=== PATIENT | male | born 1965 | race Caucasian/White ===

== ENCOUNTER → 2020-08-30 | Outpatient (CLI) | payer OTHER ==
--- NOTE | 2020-08-30 12:00 | ECHOF ---
Referral Reason:Z82.49 Family history of cardiovascular disease MEASUREMENTS -------- HEIGHT: 180.3 cm WEIGHT: 156.5 kg BP: RVIDd: 3.4 cm (< 3.3) IVSd: 2.0 cm (0.6 - 1.1) LVIDd: 4.2 cm (3.9 - 5.3) LVPWd: 2.1 cm (0.6 - 1.1) IVSs: 2.2 cm LVIDs: 3.0 cm LVPWs: 2.1 cm LAESV Index (A-L): 31.99 ml/m Ao Diam: 3.4 cm (2.0 - 3.7) AV Cusp: 2.5 cm (1.5 - 2.6) MV EXCURSION: 21.866 mm (> 18.000) MV EF SLOPE: 97 mm/s (70 - 150) EPSS: 0.7 cm MV E South: 0.83 m/s MV DecT: 201 ms MV A South: 0.56 m/s MV E/A Ratio: 1.47 RAP: 5.00 mmHg RVSP: 20.22 mmHg FINDINGS -------- This was a technically difficult study with suboptimal apical views. The left ventricular size is normal. There is severe concentric left ventricular hypertrophy. Ove rall left ventricular systolic function is normal with, an EF between 55 - 60 %. The diastolic fill ing pattern is normal for the age of the patient 11.91. The right ventricle is normal in size. LA is midly dilated 29-33ml/m2. The right atrium was not well visualized. 5.0mg of Lumason was utilized for enhancement of images Interatrial and interventricular septum intact. The aortic valve is trileaflet and appears structurally normal. There is no evidence of aortic regu rgitation. There is no evidence of aortic stenosis. Mild mitral regurgitation is present. Mild tricuspid regurgitation present. There is no evidence of pulmonary hypertension. The right v entricular systolic pressure, as measured by Doppler, is 20.22mmHg. There is no pulmonic regurgitation present. The aortic root size is normal. IVC Not well visulized. There is no pericardial effusion. CONCLUSIONS -------- 1. The left ventricular size is normal. 2. There is severe concentric left ventricular hypertrophy. 3. Overall left ventricular systolic function is normal with, an EF between 55 - 60 %. 4. The diastolic filling pattern is normal for the age of the patient 11.91 5. LA is midly dilated 29-33ml/m2. 6. Mild mitral regurgitation is present. 7. Mild tricuspid regurgitation present. 8.Aortic root apperas prominent CAN MAKER: Felipa Travis RDCS
== END | disposition home or self-care (01) ==
LOC: RADECHMAIN 08:11
PROVIDERS: ATTEND Internal Medicine
DX: Z13.6 Encounter for screening for cardiovascular disorders (principal); I08.1 Rheumatic disorders of both mitral and tricuspid valves; Z82.49 Family history of ischemic heart disease and other diseases of the circulatory system
CPT/HCPCS: 93306; Q9950

== ENCOUNTER 2020-10-17 08:40 | Emergency (ER) | payer OTHER ==
[2020-10-17 08:45] VITALS: RESP 18
[2020-10-17] MEDS ORDERED: HYDROmorphone 0.5 MG/0.5 ML SYRINGE IVP STA (08:55)
[2020-10-17] MEDS ORDERED: KETOROLAC 15 MG/ML 1 ML VIAL IVP STA (08:55)
[2020-10-17] MEDS ORDERED: SODIUM CHLORIDE 0.9% 500 ML 500 ML IV ONE (08:55)
[2020-10-17] MEDS ORDERED: ONDANSETRON 4 MG/2 ML VIAL IVP STA (08:55)
--- NOTE | 2020-10-17 08:55 | ED ---
Back Pain HPI - General Chief Complaint: Back Pain/Injury Stated Complaint: Kidney Stone Time Seen by Provider: 10/17/20 08:46 Source: patient Limitations: no limitations - History of Present Illness Initial Comments: 54yo male with suspected history of kidney stone (per patient) presenting today for hematuria/left flank pain. Patient states in the past believed he passed a kidney stone. He states his son has history of kidney stones. He states on he developed hematuria and left flank pain. Patient states he took his son's Flomax as well as his contralateral lack prescription. He states that his last dose of [place] was at midnight. Patient states that he has been known to urinate however it seemed to decreased slightly over the weekend. He states the hematuria resolved he denies fevers. Patient denies any chest pain shortness of breath. Patient denies a nausea vomiting diarrhea or abdominal pain. Patient states that the pain is episodic coming and going. Patient states the pain was slightly worsened this morning and thus I presents emergency department. Patient appears uncomfortable but not distressed on arrival. Very pleasant - Related Data Home Medications Medication Instructions Recorded Confirmed Cholecalciferol [Vitamin D3 (25 5,000 unit PO DAILY 10/17/20 10/17/20 Mcg = 1000 Iu)] Cider Vinegar [Apple Cider Vinegar] 300 mg PO DAILY 10/17/20 10/17/20 Fish Oil/Dha/Epa [Fish Oil 1,200 1 cap PO DAILY 10/17/20 10/17/20 mg Fish Oil] Ketorolac [Toradol] 10 mg PO DIRECTED 10/17/20 10/17/20 Tamsulosin HCl [Flomax] 0.4 mg PO DIRECTED 10/17/20 10/17/20 Previous Rx's Medication Instructions Recorded HYDROcodone/APAP 7.5-325MG [[place] 1 tab PO Q6HR PRN 3 Days #12 tab 10/17/20 7.5-325] Ketorolac [Toradol] 10 mg PO Q8HR PRN 3 Days #9 tab 10/17/20 Tamsulosin HCl [Flomax] 0.4 mg PO DAILY 7 Days #7 capsule 10/17/20 Allergies Allergy/AdvReac Type Severity Reaction Status Date / Time No Known Allergies Allergy Verified 10/17/20 09:33 Review of Systems ROS Statement: Those systems with pertinent positive or pertinent negative responses have been documented in the HPI. ROS Other: All systems not noted in ROS Statement are negative. Past Medical History Additional Past Medical History / Comment(s): arthritis in back History of Any Multi-Drug Resistant Organisms: None Reported Past Surgical History: Appendectomy, Orthopedic Surgery Additional Past Surgical History / Comment(s): colonoscopy, corrective toe surgery left great toe, Past Anesthesia/Blood Transfusion Reactions: No Reported Reaction Past Psychological History: No Psychological Hx Reported Smoking Status: Never smoker Past Alcohol Use History: Occasional Past Drug Use History: Marijuana - Past Family History Mother Family Medical History: No Reported History General Exam - General Exam Comments Initial Comments: General: The patient is awake and alert, in no distress Eye: +3 mm pupils are equal, round and reactive to light, extra-ocular movements are intact. No nystagmus. There is normal conjunctiva bilaterally. No signs of icterus. Ears, nose, mouth and throat: There are moist mucous membranes and no oral lesions. Neck: The neck is supple, there is no tenderness or JVD. Cardiovascular: There is a regular rate and rhythm. No murmur, rub or gallop is appreciated. Respiratory: Lungs are clear to auscultation, respirations are non-labored, breath sounds are equal. No wheezes, stridor, rales, or rhonchi. Gastrointestinal: Soft, non-distended, non-tender abdomen without masses or organomegaly noted. There is no rebound or guarding present. no CVA tenderness. Musculoskeletal: Normal ROM, no tenderness. Strength 5/5. Sensation intact. Radial pulses equal bilaterally 2+. Neurological: A&O x 3. CN II-XII intact grossly, There are no obvious motor or sensory deficits. Coordination appears grossly intact. Speech is normal. Skin: Skin is warm and dry and no rashes or lesions are noted. Psychiatric: Cooperative, appropriate mood & affect, normal judgment. Limitations: no limitations Course Vital Signs 10/17/20 10/17/20 08:42 10:15 Temperature 97.8 F 98.0 F Pulse Rate 73 68 Respiratory 18 18 Rate Blood Pressure 177/99 140/89 O2 Sat by Pulse 97 99 Oximetry Medical Decision Making - Medical Decision Making Kidney function stable. UA unremarkable. Afebrile. No hx of fevers.Large stone 1cm,hydronephrosis noted. patient pain controlled. wished to be discharged. ran cse by urology. Dr. Castro who is agreeable to discharge with outpatient f/u. Patietn discharged appearing well. - Lab Data Result diagrams: 10/17/20 09:05 10/17/20 09:05 Lab Results 10/17/20 10/17/20 10/17/20 Range/Units 09:05 09:05 09:05 WBC 7.3 (3.8-10.6) k/uL RBC 4.39 (4.30-5.90) m/uL Hgb 14.0 (13.0-17.5) gm/dL Hct 40.8 (39.0-53.0) % MCV 93.0 (80.0-100.0) fL MCH 31.8 (25.0-35.0) pg MCHC 34.2 (31.0-37.0) g/dL RDW 12.1 (11.5-15.5) % Plt Count 201 (150-450) k/uL MPV 7.0 Neutrophils % 61 % Lymphocytes % 25 % Monocytes % 8 % Eosinophils % 3 % Basophils % 2 % Neutrophils # 4.5 (1.3-7.7) k/uL Lymphocytes # 1.8 (1.0-4.8) k/uL Monocytes # 0.6 (0-1.0) k/uL Eosinophils # 0.2 (0-0.7) k/uL Basophils # 0.1 (0-0.2) k/uL Sodium 140 (137-145) mmol/L Potassium 4.3 (3.5-5.1) mmol/L Chloride 107 (98-107) mmol/L Carbon Dioxide 28 (22-30) mmol/L Anion Gap 5 mmol/L BUN 17 (9-20) mg/dL Creatinine 0.86 (0.66-1.25) mg/dL Est GFR (CKD-EPI)AfAm >90 (>60 ml/min/1.73 sqM) Est GFR (CKD-EPI)NonAf >90 (>60 ml/min/1.73 sqM) Glucose 102 H (74-99) mg/dL Calcium 9.1 (8.4-10.2) mg/dL Total Bilirubin 1.1 (0.2-1.3) mg/dL AST 33 (17-59) U/L ALT 31 (4-49) U/L Alkaline Phosphatase 79 (38-126) U/L Total Protein 7.2 (6.3-8.2) g/dL Albumin 4.0 (3.5-5.0) g/dL Urine Color Yellow Urine Appearance Clear (Clear) Urine pH 7.0 (5.0-8.0) Ur Specific [place] 1.015 (1.001-1.035) Urine Protein Negative (Negative) Urine Glucose (UA) Negative (Negative) Urine Ketones Negative (Negative) Urine Blood Negative (Negative) Urine Nitrite Negative (Negative) Urine Bilirubin Negative (Negative) Urine Urobilinogen <2.0 (<2.0) mg/dL Ur Leukocyte Esterase Negative (Negative) Disposition Clinical Impression: Left ureteral calculus, Left flank pain Disposition: HOME SELF-CARE Condition: Good Instructions (If sedation given, give patient instructions): Kidney Stones (ED) Additional Instructions: Please use medication as discussed. Please follow-up with family doctor in the next 2 days. Please return to emergency room if the symptoms increase or worsen or for any other concerns. Prescriptions: Tamsulosin HCl [Flomax] 0.4 mg PO DAILY 7 Days #7 capsule HYDROcodone/APAP 7.5-325MG [[place] 7.5-325] 1 tab PO Q6HR PRN 3 Days #12 tab PRN Reason: Pain Ketorolac [Toradol] 10 mg PO Q8HR PRN 3 Days #9 tab PRN Reason: Pain Is patient prescribed a controlled substance at d/c from ED?: Yes When asked, does pt state using other controlled substances?: No If prescribed controlled substance>3 days was MAPS reviewed?: Prescribed <3 Days If opioid is for acute pain is fill amount 7 days or less?: Yes If Rx opioid, was Start Talking consent form obtained?: Yes Referrals: Simón Valdes MD [Primary Care Provider] - 1-2 days Uziel Castro MD [STAFF PHYSICIAN] - 1-2 days Time of Disposition: 09:57
[2020-10-17 09:19] LABS: Appearance,Urine Clear (Clear); Bilirubin,Urine Negative (Negative); Blood,Urine Negative (Negative); Color,Urine Yellow; Glucose,Urine (UA) Negative (Negative); Ketones,Urine Negative (Negative); Leukocyte Esterase,Urine Negative (Negative); Nitrite,Urine Negative (Negative); Protein,Urine Negative (Negative); Specific Gravity,Urine 1.015 (1.001-1.035); Urobilinogen,Urine <2.0 mg/dL (<2.0)
[2020-10-17 09:20] LABS: Basophils # (A) 0.1 k/uL (0-0.2); Basophils % (A) 2 %; Eosinophils # (A) 0.2 k/uL (0-0.7); Eosinophils % (A) 3 %; HCT 40.8 % (39.0-53.0); Lymphocytes # (A) 1.8 k/uL (1.0-4.8); Lymphocytes % (A) 25 %; MCH 31.8 pg (25.0-35.0); MCHC 34.2 g/dL (31.0-37.0); Monocytes # (A) 0.6 k/uL (0-1.0); Monocytes % (A) 8 %; Neutrophils # (A) 4.5 k/uL (1.3-7.7); Neutrophils % (A) 61 %; Platelet Count 201 k/uL (150-450); RBC 4.39 m/uL (4.30-5.90); RDW 12.1 % (11.5-15.5); WBC 7.3 k/uL (3.8-10.6)
--- NOTE | 2020-10-17 09:35 | CT ---
EXAMINATION TYPE: CT abdomen pelvis wo con DATE OF EXAM: 10/17/2020 COMPARISON: None HISTORY: Lt flank pain CT DLP: 2876 mGycm Examination of the solid and hollow viscera is limited given the lack of contrast. FINDINGS: LUNG BASES: No evidence for nodule. No evidence for infiltrate. LIVER/GB: The gallbladder is unremarkable. No space-occupying hepatic lesion. PANCREAS: No pancreatic mass identified. No inflammatory process seen. SPLEEN: No evidence for splenomegaly. No intrasplenic lesions seen. ADRENALS: No adrenal nodules identified. No evidence for thickening. KIDNEYS: No evidence for renal mass. 1 cm calculus left UVJ resulting in mild to moderate left-sided hydronephrosis. No additional calculi seen. BOWEL: Appendix has a normal appearance. No evidence of bowel obstruction. No inflammatory process. Lymph nodes: No evidence for adenopathy greater than 1 cm. Abdominal aorta: Atheromatous changes seen. No evidence for aneurysm. Genital organs: No significant abnormality. Other: No significant abnormality. IMPRESSION: 1 cm calculus left UVJ resulting in mild to moderate left-sided hydronephrosis. No additional calculi seen.
[2020-10-17 09:38] LABS: ALT 31 U/L (4-49); AST 33 U/L (17-59); African American GFR (CKD) >90 (>60 ml/min/1.73 sqM); Alkaline Phosphatase 79 U/L (38-126); Anion Gap 5 mmol/L; Blood Urea Nitrogen 17 mg/dL (9-20); Calcium 9.1 mg/dL (8.4-10.2); Carbon Dioxide 28 mmol/L (22-30); Chloride 107 mmol/L (98-107); Glucose 102 mg/dL (74-99); Non-African American GFR(CKD) >90 (>60 ml/min/1.73 sqM); Potassium 4.3 mmol/L (3.5-5.1); Sodium 140 mmol/L (137-145); Total Bilirubin 1.1 mg/dL (0.2-1.3); Total Protein 7.2 g/dL (6.3-8.2)
[2020-10-17 10:19] VITALS: BP 140/89; PULSE 68; TEMP 98
== END 2020-10-17 10:22 | disposition home or self-care (01) ==
LOC: EC 08:40
DX: N13.2 Hydronephrosis with renal and ureteral calculous obstruction (principal); Z79.1 Long term (current) use of non-steroidal anti-inflammatories (NSAID); Z79.899 Other long term (current) drug therapy; Z90.89 Acquired absence of other organs
CPT/HCPCS: 36415; 80053; 85025; 81003; 74176; 99284; 96374; 96375 ×2; J2405; J1885; J1170

== ENCOUNTER 2020-10-31 10:55 | Inpatient (IN) | payer OTHER ==
--- NOTE | 2020-10-24 12:11 | P.HPIHPCON ---
History of Present Illness H&P Date: 10/24/20 Chief Complaint: left flank pain Mr Olvera is a 54-year-old male with a history of a 1 cm left-sided proximal stone. He is symptomatic from his stone. The option of ureteroscopy and ESWL were discussed with him. He agreed to proceed with left-sided ureteroscopy. Discussed with him the risks which includes but not limited to bleeding, infection, injury to the ureter. He understood all the risk and agreed to proceed with left-sided ureteroscopy, with holmium laser lithotripsy, stone basketing and stent placement Consent for Procedure: I have explained the operation/procedure to the patient, including the risks, benefits, side effects, alternative therapies (including not receiving the proposed treatment or service), the likelihood of the patient achieving his/her goals, and potential recuperation problems for the procedure/sedation/analgesia, as well as any blood products, if indicated. I also explained to the patient the risks, benefits and side effects of the alternatives, as well as the risks related to not receiving the proposed procedure, care, treatment, or services. - Constitutional Constitutional: Denies chills, Denies fever - Cardiovascular Cardiovascular: Denies chest pain, Denies shortness of breath - Respiratory Respiratory: Denies cough, Denies 7 - Gastrointestinal Gastrointestinal: Denies abdominal pain, Denies diarrhea, Denies nausea, Denies vomiting - Genitourinary (Female) Genitourinary: Reports flank pain, Reports kidney stones Past Medical History Additional Past Medical History / Comment(s): arthritis in back History of Any Multi-Drug Resistant Organisms: None Reported Past Surgical History: Appendectomy, Orthopedic Surgery Additional Past Surgical History / Comment(s): colonoscopy, corrective toe surgery left great toe, Past Anesthesia/Blood Transfusion Reactions: No Reported Reaction Past Psychological History: No Psychological Hx Reported Smoking Status: Never smoker Past Alcohol Use History: Occasional Past Drug Use History: Marijuana - Past Family History Mother Family Medical History: No Reported History Medications and Allergies Home Medications Medication Instructions Recorded Confirmed Type Cholecalciferol [Vitamin D3 (25 5,000 unit PO DAILY 10/17/20 10/17/20 History Mcg = 1000 Iu)] Cider Vinegar [Apple Cider Vinegar] 300 mg PO DAILY 10/17/20 10/17/20 History Fish Oil/Dha/Epa [Fish Oil 1,200 1 cap PO DAILY 10/17/20 10/17/20 History mg Fish Oil] HYDROcodone/APAP 7.5-325MG [[place] 1 tab PO Q6HR PRN 3 Days #12 tab 10/17/20 Rx 7.5-325] Ketorolac [Toradol] 10 mg PO DIRECTED 10/17/20 10/17/20 History Ketorolac [Toradol] 10 mg PO Q8HR PRN 3 Days #9 tab 10/17/20 Rx Tamsulosin HCl [Flomax] 0.4 mg PO DIRECTED 10/17/20 10/17/20 History Tamsulosin HCl [Flomax] 0.4 mg PO DAILY 7 Days #7 capsule 10/17/20 Rx Allergies Allergy/AdvReac Type Severity Reaction Status Date / Time No Known Allergies Allergy Verified 10/17/20 09:33 Surgical - Exam - General no distress, moderate pain - Eyes PERRL, normal ocular movement - ENT normal nares, normal mucosa - Respiratory normal expansion, normal respiratory effort - Abdomen Abdomen: soft, non tender - Psychiatric oriented to time, oriented to person, oriented to place Assessment and Plan Assessment: 54 yo male with hx of 1 cm left sided proximal stone - OR for left-sided ureteroscopy, holmium laser lithotripsy, stone basketing, and stent placement
[2020-10-24 15:03] VITALS: BMI 47.4
[~2020-10-31 10:55] MED LIST: DEXAMETHASONE SOD PHOSPHATE 4 MG/ML 1 ML VIAL IV ONE; HYDROmorphone 0.5 MG/0.5 ML SYRINGE IVP PRN; ONDANSETRON 4 MG/2 ML VIAL IVP ONE; ceFAZolin 3 GM in SODIUM CHLORIDE 0.9% 100 ML IVPB PRN
--- NOTE | 2020-10-31 11:23 | XR ---
EXAMINATION TYPE: XR KUB DATE OF EXAM: 10/31/2020 COMPARISON: NONE HISTORY: Precystoscopy TECHNIQUE: One view abdominal series FINDINGS: The osseous structures are intact. The bowel gas pattern is nonspecific. Hypertrophic change of the spine. Hypertrophic change of the acetabulum bilaterally correlate for femoral acetabular impingement . There are 2 tiny 2 mm calcifications in the lower right hemipelvis which are indeterminate. Upper a bdominal structures are not included. There does appear to be a calcification overlying the left 12th rib likely within the left kidney measuring approximately 1 cm in long axis. IMPRESSION: 1. Nonspecific abdomen. Suspect a left renal calculus measuring approximately 1 cm. 2. Indeterminate tiny right hemipelvic calcifications.
[2020-10-31] MEDS ORDERED: ACETAMINOPHEN TAB 500 MG TAB PO STA (12:17)
[2020-10-31] MEDS ORDERED: ACETAMINOPHEN TAB 500 MG TAB ONE (12:18)
[2020-10-31 12:32] LABS: Appearance,Urine Clear (Clear); Bilirubin,Urine Negative (Negative); Blood,Urine Small (Negative); Color,Urine Light Yellow; Glucose,Urine (UA) Negative (Negative); Hyaline Casts,Urine 1 /lpf (0-2); Ketones,Urine Negative (Negative); Leukocyte Esterase,Urine Large (Negative); Nitrite,Urine Positive (Negative); PH, Urine 7.5 (5.0-8.0); Protein,Urine Negative (Negative); RBC,Urine <1 /hpf (0-5); Urobilinogen,Urine <2.0 mg/dL (<2.0); WBC,Urine 3 /hpf (0-5)
[2020-10-31] MEDS: LACTATED RINGERS 1,000 ML IV SCH (12:57)
[2020-10-31 13:07] LABS: Basophils # (A) 0.1 k/uL (0-0.2); Basophils % (A) 1 %; Eosinophils # (A) 0.1 k/uL (0-0.7); Eosinophils % (A) 1 %; HCT 37.9 % (39.0-53.0); Lymphocytes # (A) 1.1 k/uL (1.0-4.8); Lymphocytes % (A) 9 %; MCH 31.4 pg (25.0-35.0); MCHC 34.3 g/dL (31.0-37.0); MCV 91.6 fL (80.0-100.0); Mean Platelet Volume 7.3; Monocytes # (A) 0.5 k/uL (0-1.0); Monocytes % (A) 4 %; Neutrophils # (A) 10.4 k/uL (1.3-7.7); Neutrophils % (A) 85 %; Platelet Count 183 k/uL (150-450); RBC 4.14 m/uL (4.30-5.90); RDW 12.1 % (11.5-15.5); WBC 12.3 k/uL (3.8-10.6)
[2020-10-31 13:13] LABS: ALT 28 U/L (4-49); AST 30 U/L (17-59); African American GFR (CKD) >90 (>60 ml/min/1.73 sqM); Albumin 3.9 g/dL (3.5-5.0); Alkaline Phosphatase 73 U/L (38-126); Anion Gap 4 mmol/L; Blood Urea Nitrogen 16 mg/dL (9-20); Calcium 8.9 mg/dL (8.4-10.2); Carbon Dioxide 27 mmol/L (22-30); Chloride 105 mmol/L (98-107); Glucose 92 mg/dL (74-99); Non-African American GFR(CKD) >90 (>60 ml/min/1.73 sqM); Sodium 136 mmol/L (137-145); Total Protein 6.9 g/dL (6.3-8.2)
[2020-10-31] MEDS ORDERED: SUCCINYLCHOLINE CHLORIDE 100 MG/5 ML SYR IV ONE (14:22)
[2020-10-31] MEDS ORDERED: MIDAZOLAM 2 MG/2 ML VIAL ONE (14:22)
[2020-10-31] MEDS ORDERED: fentaNYL (PF) 50 MCG/ML 2 ML AMP ONE (14:22)
[2020-10-31] MEDS ORDERED: LIDOCAINE 1% INJ 10MG/ML (20 ML MDV) ONE (14:22)
[2020-10-31] MEDS ORDERED: PROPOFOL 10 MG/ML 20 ML VIAL IV ONE (14:22)
[2020-10-31] MEDS ORDERED: GENTAMICIN 40 MG/ML 2 ML VIAL IVPB ONE (14:43)
--- NOTE | 2020-10-31 14:56 | P.OP ---
Date of Procedure: 10/31/20 Preoperative Diagnosis: left ureteral calculi Postoperative Diagnosis: same Procedure(s) Performed: cystoscopy and left ureteral stent placement Implants: 6Fr X 26 cm stent Anesthesia: TERESSA Surgeon: Uziel Castro Estimated Blood Loss (ml): 1 Pathology: none sent Condition: stable Disposition: PACU Indications for Procedure: Mr Olvera is a 54-year-old male with a history of a 1 cm left-sided proximal stone. He is symptomatic from his stone. The option of ureteroscopy and ESWL were discussed with him. He agreed to proceed with left-sided ureteroscopy. Of note patient was febrile in the preoperative area, urine was obtained which was concerning for UTI. Discussed with him given his UTI and fever I recommend we proceed with stent placement. And then we'll perform ureteroscopy at a later date. Discussed with him risk of bleeding, infection, ureteral injury. He understood all the risk and agreed to proceed with ureteral stent placement. Discussed with him given his fever we will admit him to the hospital postoperatively Description of Procedure: Patient was brought to the operating room, general anesthesia was induced. A cystoscopy fitted with a 22 sheath was inserted per urethra, cystoscopy was performed which showed no abnormality within the bladder. Attention was carried to the left ureteral orifice, sensor wire was advanced through ureteral orifice and into the kidney. Next a 6-Irish by 26 cm stent was passed over the wire. The proximal curl was visualized on fluoroscopy and distal curl was visualized on cystoscope. Cloudy urine was drained from the collecting system. The bladder was emptied and the case. The patient tolerated procedure well and significant PACU in stable condition
--- NOTE | 2020-10-31 15:15 | FL ---
EXAMINATION TYPE: FL guidance operating room DATE OF EXAM: 10/31/2020 HISTORY: Fluoroscopy time 14 seconds of fluoroscopy provided. IMPRESSION: 1. Fluoroscopy time.
[2020-10-31] MEDS: KETOROLAC 15 MG/ML 1 ML VIAL IVP SCH (17:42)
[2020-10-31 17:57] LABS: Basophils % (A) 0 %; Eosinophils # (A) 0.1 k/uL (0-0.7); Eosinophils % (A) 0 %; HGB 13.9 gm/dL (13.0-17.5); Lymphocytes # (A) 0.8 k/uL (1.0-4.8); Lymphocytes % (A) 5 %; MCH 30.3 pg (25.0-35.0); MCHC 32.3 g/dL (31.0-37.0); MCV 93.9 fL (80.0-100.0); Mean Platelet Volume 7.4; Monocytes # (A) 0.4 k/uL (0-1.0); Monocytes % (A) 2 %; Neutrophils # (A) 15.8 k/uL (1.3-7.7); Neutrophils % (A) 92 %; Platelet Count 212 k/uL (150-450); RBC 4.58 m/uL (4.30-5.90); RDW 12.6 % (11.5-15.5); WBC 17.1 k/uL (3.8-10.6)
[2020-10-31 18:08] LABS: African American GFR (CKD) >90 (>60 ml/min/1.73 sqM); Anion Gap 8 mmol/L; Blood Urea Nitrogen 14 mg/dL (9-20); Calcium 9.3 mg/dL (8.4-10.2); Carbon Dioxide 28 mmol/L (22-30); Chloride 102 mmol/L (98-107); Glucose 109 mg/dL (74-99); Non-African American GFR(CKD) >90 (>60 ml/min/1.73 sqM); Potassium 4.3 mmol/L (3.5-5.1); Sodium 138 mmol/L (137-145)
[2020-10-31] MEDS: SODIUM CHLORIDE 0.9% 1,000 ML IV SCH ×2 (19:13→23:59)
[2020-10-31] MEDS: HYDROcodone/APAP 5-325MG 1 EACH TAB PO PRN (19:31)
[2020-11-01] MEDS: HYDROcodone/APAP 5-325MG 1 EACH TAB PO PRN ×2 (00:51→21:20)
[2020-11-01] MEDS: KETOROLAC 15 MG/ML 1 ML VIAL IVP SCH ×6 (01:47→23:35)
[2020-11-01] MEDS: LACTATED RINGERS 1,000 ML IV SCH (04:01)
[2020-11-01] MEDS: SODIUM CHLORIDE 0.9% 1,000 ML IV SCH ×4 (05:42→23:33)
[2020-11-01] MEDS: ACETAMINOPHEN TAB 500 MG TAB PO PRN ×2 (07:26→14:54)
[2020-11-01] MEDS: TAMSULOSIN 0.4 MG CAP.ER.24H PO SCH (09:26)
--- NOTE | 2020-11-01 17:19 | P.PN ---
Progress Note - Text Progress Note Date: 11/01/20 The patient continues to have some discomfort in the left flank and left abdomen. He has had intermittent fevers as high as 101.5. He is tolerating a diet. White blood count is 17,100. BUN/creatinine are 14/0.8. Urine culture is pending. Blood cultures are negative. I explained to the patient that treatment of his left ureteral calculus will need to be deferred until his urinary tract infection has been eliminated. Hopefully his cultures will be back within the next 24-48 hours. He will be continued on ceftriaxone.
[2020-11-02] MEDS: ACETAMINOPHEN TAB 500 MG TAB PO PRN (03:46)
[2020-11-02] MEDS: LACTATED RINGERS 1,000 ML IV SCH (05:35)
[2020-11-02 06:07] LABS: HCT 35.8 % (39.0-53.0); HGB 12.2 gm/dL (13.0-17.5); MCH 31.8 pg (25.0-35.0); MCV 93.5 fL (80.0-100.0); Mean Platelet Volume 7.7; Platelet Count 144 k/uL (150-450); RBC 3.83 m/uL (4.30-5.90); RDW 11.9 % (11.5-15.5); WBC 16.5 k/uL (3.8-10.6)
[2020-11-02] MEDS: KETOROLAC 15 MG/ML 1 ML VIAL IVP SCH ×2 (06:28→11:56)
[2020-11-02 08:06] VITALS: BP 134/76; PULSE 74; TEMP 98.4
[2020-11-02] MEDS: TAMSULOSIN 0.4 MG CAP.ER.24H PO SCH (08:08)
[2020-11-02 09:11] VITALS: RESP 18
--- NOTE | 2020-11-02 20:29 | P.DS ---
Providers Date of admission: 11/02/20 09:55 Expected date of discharge: 11/02/20 Attending physician: Uziel Castro MD Primary care physician: [facility] Course: The patient is a 54-year-old male who was discovered to have a 1 cm proximal left ureteral calculus with secondary hydronephrosis in 10/2020. Treatment of the ureteral calculus via left ureteroscopy with lithotripsy was planned on the date of admission. At the time of admission the patient was noted to be febrile and in retrospect the patient says that he had been experiencing a fever for at least 2 or 3 days prior to that. His urinalysis at that time suggested a urinary tract infection and Dr. Castro elected to cancel the planned ureteroscopy with lithotripsy and instead performed cystoscopy with placement of a left double-J catheter. The patient was started on Levaquin. He remained febrile through the night and the following day but by 11/02 had been afebrile for over 24 hours. Blood cultures showed no growth. Urine culture was growing a gram-negative morelia but the final identification and sensitivities were pending. The patient was tolerating a regular diet and it was elected to give him a dose of ceftriaxone on the date of discharge with the intent that he would be contacted following day once the urine culture and sensitivity and was returned and an antibiotic would be prescribed for him at that time. Left ureteroscopy with lithotripsy has been tentatively scheduled for 11/14. Patient Condition at Discharge: Good Plan - Discharge Summary Discharge Rx Participant: No New Discharge Prescriptions: No Action Fish Oil/Dha/Epa [Fish Oil 1,200 mg Fish Oil] 1 cap PO DAILY Cider Vinegar [Apple Cider Vinegar] 300 mg PO DAILY Tamsulosin HCl [Flomax] 0.4 mg PO DAILY 7 Days #7 capsule Ketorolac [Toradol] 10 mg PO Q8HR PRN 3 Days #9 tab PRN Reason: Pain HYDROcodone/APAP 7.5-325MG [[place] 7.5-325] 1 tab PO Q6HR PRN 3 Days #12 tab PRN Reason: Pain Cholecalciferol [Vitamin D3 (25 Mcg = 1000 Iu)] 10,000 unit PO DAILY Discharge Medication List Cider Vinegar [Apple Cider Vinegar] 300 mg PO DAILY 10/17/20 [History] Fish Oil/Dha/Epa [Fish Oil 1,200 mg Fish Oil] 1 cap PO DAILY 10/17/20 [History] HYDROcodone/APAP 7.5-325MG [[place] 7.5-325] 1 tab PO Q6HR PRN 3 Days #12 tab 10/17/20 [Rx] Ketorolac [Toradol] 10 mg PO Q8HR PRN 3 Days #9 tab 10/17/20 [Rx] Tamsulosin HCl [Flomax] 0.4 mg PO DAILY 7 Days #7 capsule 10/17/20 [Rx] Cholecalciferol [Vitamin D3 (25 Mcg = 1000 Iu)] 10,000 unit PO DAILY 10/24/20 [History] Follow up Appointment(s)/Referral(s): Uziel Castro MD [STAFF PHYSICIAN] - 1 Week Christiano Morin MD [STAFF PHYSICIAN] - As Needed (Office to call patient Osbaldo sday with antibiotic orders once culture comes back ) Patient Instructions/Handouts: Lithotripsy (DC) Discharge Disposition: HOME SELF-CARE
== END 2020-11-02 13:28 | disposition home or self-care (01) | DRG 660 ==
LOC: OR 10:55 → 4SSUR 15:08 → OR 11-01 08:47 → 4SSUR 11-01 08:47 → OBSVTOIN 11-02 09:55
PROVIDERS: ADMIT Urology; ATTEND Urology
PROC: 0T778DZ Dilation of Left Ureter with Intraluminal Device, Via Natural or Artificial Opening Endoscopic (ICD-10-PCS; principal; 2020-10-31 14:00)
DX: N13.6 Pyonephrosis (principal); Z68.42 Body mass index [BMI] 45.0-49.9, adult; E66.01 Morbid (severe) obesity due to excess calories; G47.33 Obstructive sleep apnea (adult) (pediatric); Z79.899 Other long term (current) drug therapy; Z90.49 Acquired absence of other specified parts of digestive tract; Z98.890 Other specified postprocedural states
CPT/HCPCS: 74018; 80048; 80053; 81001; 85025; 85027; 87040; 87077; 87086; 87186

== ENCOUNTER 2020-11-14 06:05 | Day surgery (SDC) | payer OTHER ==
--- NOTE | 2020-11-13 13:21 | P.HPIHPCON ---
History of Present Illness H&P Date: 11/13/20 Chief Complaint: left sided kidney stone Mr Olvera is a 54-year-old male with a history of a 1 cm left-sided proximal stone. He is S/P stent placement on 10/31 for septic stone. The option of ureteroscopy and ESWL were discussed with him. He agreed to proceed with left-s ided ureteroscopy. Discussed with him the risks which includes but not limited to bleeding, infection, injury to the ureter. He understood all the risk and agreed to proceed with left-sided ureteroscopy, with holmium laser lithotripsy, stone basketing and stent placement Consent for Procedure: I have explained the operation/procedure to the patient, including the risks, benefits, side effects, alternative therapies (including not receiving the proposed treatment or service), the likelihood of the patient achieving his/her goals, and potential recuperation problems for the procedure/sedation/analgesia, as well as any blood products, if indicated. I also explained to the patient the risks, benefits and side effects of the alternatives, as well as the risks related to not receiving the proposed procedure, care, treatment, or services. Past Medical History Past Medical History: Osteoarthritis (OA), Sleep Apnea/CPAP/BIPAP Additional Past Medical History / Comment(s): UTI, TREATED WITH LEVAQUIN. Kidney stones, hx of colon polyps History of Any Multi-Drug Resistant Organisms: None Reported Past Surgical History: Appendectomy, Orthopedic Surgery Additional Past Surgical History / Comment(s): 10/31/20 LEFT URETERAL STENT PLACED, KIDNEY STONE. Colonoscopy, corrective toe surgery right great toe, Past Anesthesia/Blood Transfusion Reactions: No Reported Reaction Past Psychological History: No Psychological Hx Reported Smoking Status: Former smoker Past Alcohol Use History: Occasional Additional Past Alcohol Use History / Comment(s): quit smoking 2008, smoked for 20 yrs- < 1 PPD Past Drug Use History: Marijuana Additional Drug Use History / Comment(s): occasional use, instructed to hold 24hrs prior to procedure - Past Family History Mother Family Medical History: No Reported History Medications and Allergies Home Medications Medication Instructions Recorded Confirmed Type Cider Vinegar [Apple Cider Vinegar] 300 mg PO DAILY 10/17/20 11/10/20 History Fish Oil/Dha/Epa [Fish Oil 1,200 1 cap PO DAILY 10/17/20 11/10/20 History mg Fish Oil] HYDROcodone/APAP 7.5-325MG [[place] 1 tab PO Q6HR PRN 3 Days #12 tab 10/17/20 11/10/20 Rx 7.5-325] Tamsulosin HCl [Flomax] 0.4 mg PO DAILY 7 Days #7 capsule 10/17/20 11/10/20 Rx Cholecalciferol [Vitamin D3 (25 10,000 unit PO DAILY 10/24/20 11/10/20 History Mcg = 1000 Iu)] Levofloxacin [Levaquin] 500 mg PO DAILY 11/10/20 11/10/20 History Allergies Allergy/AdvReac Type Severity Reaction Status Date / Time No Known Allergies Allergy Verified 10/31/20 12:28 Surgical - Exam - General well developed, well nourished, no distress - Respiratory normal expansion, normal respiratory effort - Abdomen Abdomen: soft, non tender - Psychiatric oriented to time, oriented to person, oriented to place Assessment and Plan Assessment: 54 yo male with hx of left sided stone -OR for left sided ureteroscopy, with holmium laser lithotripsy, stone basketting and stent exchange
[~2020-11-14 06:05] MED LIST changes: +GENTAMICIN 120 MG in SODIUM CHLORIDE 0.9% 100 ML IVPB PRN; +LACTATED RINGERS 1,000 ML IV SCH; +LIDOCAINE 1% (10MG/ML) FOR IV START INTRADERMA PRN; +SCOPOLAMINE 1.5MG/72HR PATCH TRANSDERM ONE; -ceFAZolin 3 GM in SODIUM CHLORIDE 0.9% 100 ML IVPB PRN
[2020-11-14] MEDS ORDERED: ePHEDrine SULFATE/0.9% NACL/PF 50 MG/5 ML SYRINGE IV ONE (07:33)
[2020-11-14] MEDS ORDERED: LIDOCAINE 1% INJ 10MG/ML (20 ML MDV) ONE (07:33)
[2020-11-14] MEDS ORDERED: MIDAZOLAM 2 MG/2 ML VIAL ONE (07:33)
[2020-11-14] MEDS ORDERED: PROPOFOL 10 MG/ML 20 ML VIAL IV ONE (07:33)
[2020-11-14] MEDS ORDERED: SUCCINYLCHOLINE CHLORIDE VIAL 200 MG/10 ML VIAL IV ONE (07:33)
[2020-11-14] MEDS ORDERED: fentaNYL (PF) 50 MCG/ML 2 ML AMP ONE (07:33)
[2020-11-14] MEDS ORDERED: IOPAMIDOL-370 50ML BTL MISCELLANE ONE (07:38)
--- NOTE | 2020-11-14 08:47 | P.OP ---
Date of Procedure: 11/14/20 Preoperative Diagnosis: Left Sided ureteral stone Postoperative Diagnosis: same Procedure(s) Performed: Cystoscopy, left retrograde pyelogram, ureteroscopy, holmium laser lithotripsy, stone basketing and stent exchange Implants: 6Fr X 26 cm stent left on string Anesthesia: TERESSA Surgeon: Uziel Castro Estimated Blood Loss (ml): 1 Pathology: other (Left ureteral stone) Condition: stable Disposition: PACU Indications for Procedure: Mr Olvera is a 54-year-old male with a history of a 1 cm left-sided proximal stone. He is S/P stent placement on 10/31 for septic stone. The option of ureteroscopy and ESWL were discussed with him. He agreed to proceed with left- sided ureteroscopy. Discussed with him the risks which includes but not limited to bleeding, infection, injury to the ureter. He understood all the risk and agreed to proceed with left-sided ureteroscopy, with holmium laser lithotripsy, stone basketing and stent placement Operative Findings: previous ureteral Stone has migrated to the left renal pelvis Description of Procedure: Patient was brought to the operating room, general anesthesia was induced. He was prepped and draped in sterile fashion and placed in a dorsal lithotomy position. Cystoscopy fitted with a 21-Vincentian sheath was inserted per urethra, cystoscopy was performed which showed no abnormality within the bladder. Attention was then carried to the left ureteral orifice, the stent was grasped using the stent grasper and pulled to the meatus. Next a sensor wire was advanced through the stent and into the renal pelvis. Location of wire was confirmed on fluoroscopy. Next an open-ended catheter was advanced over the wire and into today distal ureter. At this time the wire was removed with the catheter in place. Next retrograde pyelogram was performed which showed a filling defect in the renal pelvis, and no filling defect along the ureter. At this time the sensor wire was readvanced through the catheter catheter was removed with the wire in place. Next a 1214 Vincentian access sheath was passed over the wire under fluoroscopy into the proximal ureter. Next the flexible ureteroscope was inserted through the access sheath, renoscopy was performed which showed a large stone within the renal pelvis. Using the holmium laser the stone was dusted into small fragments, sizable fragments were removed using the stone basket and sent for analysis. Repeat renoscopy showed no injury to the kidney or any sizable fragments. Pullback ureteroscopy was performed showed no injury to the ureter or any ureteral stone. Next a 6-Vincentian by 26 cm stent was passed over the wire, the proximal curl was visualized on the fluoroscopy and the distal curl was visualized using the cystoscope. The stent was left on a string and taped to the patient penis. The patient thought the procedure well was taken to PACU in stable condition
--- NOTE | 2020-11-14 08:58 | XR ---
EXAMINATION TYPE: XR KUB DATE OF EXAM: 11/14/2020 6:25 AM CLINICAL HISTORY: Left-sided renal calculi. TECHNIQUE: Two supine KUB images of the abdomen are obtained. COMPARISON: CT head October 17, 2020. Most recent abdominal x-ray October 31, 2020. FINDINGS: New double-J left ureteral stent noted. Stable 7 mm proximal left ureter calculus L3 level along stent. Overall nonobstructive bowel gas pattern. Degenerative spurring in the spine redemonstrated. IMPRESSION: As above.
[2020-11-14 09:01] VITALS: TEMP 96.8
--- NOTE | 2020-11-14 09:06 | FL ---
EXAMINATION TYPE: FL guidance operating room DATE OF EXAM: 11/14/2020 HISTORY: Fluoroscopy time 38 seconds of fluoroscopy provided. IMPRESSION: 1. Fluoroscopy time.
[2020-11-14 09:43] VITALS: RESP 18
[2020-11-14 10:21] VITALS: BP 135/78; PULSE 67
== END 2020-11-14 10:21 | disposition home or self-care (01) ==
LOC: OR 06:05
PROVIDERS: ATTEND Urology
DX: N20.2 Calculus of kidney with calculus of ureter (principal); M19.90 Unspecified osteoarthritis, unspecified site; G47.33 Obstructive sleep apnea (adult) (pediatric); Z99.89 Dependence on other enabling machines and devices; Z87.440 Personal history of urinary (tract) infections; Z87.442 Personal history of urinary calculi; Z86.010 Personal history of colon polyps; Z98.890 Other specified postprocedural states; Z87.891 Personal history of nicotine dependence; Z79.891 Long term (current) use of opiate analgesic; Z79.899 Other long term (current) drug therapy
CPT/HCPCS: 82365; 74018; 52356; C2625; C1894; C1758; C1769; J2250; J0330; J1100; J0690; J2405; J2001; J3010; J2704; Q9967

== ENCOUNTER → 2020-11-29 | Outpatient (CLI) | payer OTHER ==
--- NOTE | 2020-11-29 13:31 | US ---
EXAMINATION TYPE: US kidneys/renal and bladder DATE OF EXAM: 11/29/2020 COMPARISON: NONE CLINICAL HISTORY: N20.1 CALCULUS OF URETER. EXAM MEASUREMENTS: Right Kidney: 13.3 x 8.0 x 6.2 cm Left Kidney: 12.7 x 7.4 x 6.3 cm Morbidly obese patient, technically difficult study. Right Kidney: No hydronephrosis or masses seen, measures large Left Kidney: partially obscured by bowel gas, no obvious masses, no hydronephrosis, measures large Bladder: wall appears thickened Bilateral Jets seen: Yes IMPRESSION: 1. No acute ultrasound abnormality bilateral kidneys. Exam is limited due to body habitus
== END | disposition home or self-care (01) ==
LOC: RADUSWWP 12:18
PROVIDERS: ATTEND Urology
DX: N20.1 Calculus of ureter (principal)
CPT/HCPCS: 76770

== ENCOUNTER → 2021-03-06 | Outpatient (CLI) | payer OTHER ==
--- NOTE | 2021-03-06 13:17 | XR ---
EXAMINATION TYPE: XR chest 2V DATE OF EXAM: 03/06/2021 COMPARISON: NONE HISTORY: Shortness of breath TECHNIQUE: Frontal and lateral views of the chest are obtained. FINDINGS: Scattered senescent parenchymal changes noted. No evidence for infiltrate. No evidence for atelectasis. Heart size is stable. Mediastinal structures are stable and grossly unremarkable. No evidence for hilar prominence. Degenerative changes dorsal spine. IMPRESSION: 1. No evidence for acute pulmonary disease.
== END | disposition home or self-care (01) ==
LOC: RADXRMAIN 12:44
PROVIDERS: ATTEND Family Medicine
DX: R06.02 Shortness of breath (principal)
CPT/HCPCS: 71046

== ENCOUNTER → 2021-06-27 | Outpatient (CLI) | payer OTHER ==
--- NOTE | 2021-06-27 12:59 | CT ---
EXAMINATION TYPE: CT abdomen pelvis wo con DATE OF EXAM: 06/27/2021 COMPARISON: 10/17/2020 INDICATION: Right flank pain DLP: 2687.9 mGycm, Automated exposure control for dose reduction was used. CONTRAST: None Study performed without Oral Contrast TECHNIQUE: Axial images were obtained from above the diaphragm to the pubic rami in the axial plane a t 5 mm thick sections. Reconstructed images are reviewed on the computer in the coronal plane. FINDINGS: Limited CT sections are obtained the lung bases. The lung bases are clear. CT ABDOMEN: Liver: Normal Spleen: Normal Pancreas: Normal Adrenal glands: The adrenal glands are normal. Gallbladder: Normal Kidneys: No masses are evident. No hydronephrosis is present. No cysts are present. Nonobstructing left inferior pole renal stone is present measuring 0.3 cm. Punctate nonobstructing renal stone is p resent at the inferior right kidney. Previous left ureteral pelvic junction stone is not identified Aorta: Vascular calcification is within the aorta. Inferior vena cava: Normal. CT PELVIS: Loops of bowel within the abdomen and pelvis are normal. Diverticulosis to the sigmoid colon and dis go descending colon There are loops of bowel which are incompletely distended or lack oral contras t limiting their evaluation. Appendix: Not visualized. No dilated tubular structure or inflammatory changes are evident. Urinary bladder: Normal. Genitourinary structures: Prostate contains calcification. Osseous structures: No suspicious lytic or sclerotic lesions. IMPRESSIONS: 1. Nonobstructing bilateral renal stones. Previous left ureteropelvic junction stone is not present. 2. Diverticulosis without evidence of acute diverticulitis.
== END | disposition home or self-care (01) ==
LOC: RADCTMAIN 12:27
PROVIDERS: ATTEND Urology
DX: N20.0 Calculus of kidney (principal); K57.90 Diverticulosis of intestine, part unspecified, without perforation or abscess without bleeding
CPT/HCPCS: 74176

== ENCOUNTER → 2022-08-27 | Outpatient (CLI) | payer OTHER ==
[2022-08-27 11:06] LABS: African American GFR (CKD) >90 (>60 ml/min/1.73 sqM); Blood Urea Nitrogen 18 mg/dL (9-20); Non-African American GFR(CKD) >90 (>60 ml/min/1.73 sqM)
--- NOTE | 2022-08-27 13:22 | CT ---
EXAMINATION TYPE: CT urogram wo/w con DATE OF EXAM: 08/27/2022 COMPARISON: Prior CT abdomen and pelvis June 27, 2021 HISTORY: Microscopic Hematuria CT DLP: 9168.10 mGycm, Automated Exposure Control for Dose Reduction was Utilized. CONTRAST: CT scan of the abdomen and pelvis is performed without oral and without and with IV Contrast, patient injected with 100 mL of Isovue 300. Urogram protocol with 3-D reconstructed images on independent wo rkstation and reviewed. FINDINGS: KUB: There is new elongated 6 mm calculus in the left kidney upper to midpole level coronal image 114 . There is stable 2 mm calculus lower pole of the right kidney coronal image 99. There are now 2 bin cent 2 mm calculi lower pole left kidney axial image 66. Cortical thinning of both kidneys redemonstrated. Postcontrast images show symmetric corticomedullary uptake and excretion without hydronephrosis seen bilaterally. There is 2.0 x 1.4 cm simple appearing thin-walled cyst anterior left kidney image 27 series 10 level. Subcentimeter low dense lesion later ally axial image 35 is too small to further characterize but presumably benign. No solid or cystic ma sses in the right kidney. Satisfactory excretion of both ureters without calculus. Satisfactory filli ng of the bladder without intraluminal mass. There are 3 small dependent calculi measuring up to 3 mm in size axial images 123 through 125 series 3 noted. LUNG BASES: No significant abnormality is appreciated. LIVER/GB: No significant abnormality is appreciated. PANCREAS: No significant abnormality is seen. SPLEEN: No significant abnormality is seen. ADRENALS: No significant abnormality is seen. BOWEL: No significant abnormality is seen. PROSTATE/SEMINAL VESICLES: No gross abnormality seen. LYMPH NODES: No greater than 1cm abdominal or pelvic lymph nodes are appreciated. OSSEOUS STRUCTURES: Multilevel spurring and disc space narrowing throughout the thoracolumbar spine. Severe findings lumbosacral junction noted. Moderate findings L4-L5 level noted. Facet arthropathy lo wer lumbar levels. OTHER: No significant additional abnormality is seen. IMPRESSION: Bilateral nonobstructing nephrolithiasis along with three tiny dependent calculi in the urinary bladd er likely account for patient's symptoms of microscopic hematuria.
== END | disposition home or self-care (01) ==
LOC: RADCTMAIN 09:54
PROVIDERS: ATTEND Urology
DX: N20.0 Calculus of kidney (principal)
CPT/HCPCS: 82565; 84520; 74178; 36415; 74400; Q9967

== ENCOUNTER → 2022-09-05 | Day surgery (SDC) | payer OTHER ==
[2022-08-30 13:14] VITALS: BMI 47.4
[~2022-09-05] MED LIST changes: -DEXAMETHASONE SOD PHOSPHATE 4 MG/ML 1 ML VIAL IV ONE; -GENTAMICIN 120 MG in SODIUM CHLORIDE 0.9% 100 ML IVPB PRN; -HYDROmorphone 0.5 MG/0.5 ML SYRINGE IVP PRN; +LACTATED RINGERS 1,000 ML IV ONE; +LIDOCAINE 2% INJ 20 MG/ML (2 ML VIAL) ONE; -ONDANSETRON 4 MG/2 ML VIAL IVP ONE; +PROPOFOL 10 MG/ML 20 ML VIAL IV ONE; -SCOPOLAMINE 1.5MG/72HR PATCH TRANSDERM ONE
[2022-09-05 09:14] VITALS: TEMP 96.8
--- NOTE | 2022-09-05 10:44 | P.PCN ---
Date of Procedure: 09/05/22 Procedure(s) Performed: BRIEF HISTORY: Patient is a 56-year-old pleasant white male scheduled for an elective colonoscopy as a part of screening for colon cancer and family history of colon cancer. His dad was diagnosed with colon cancer in a 78, his paternal uncle at 79 and his paternal grandfather in his 80s. PROCEDURE PERFORMED: Colonoscopy. PREOPERATIVE DIAGNOSIS: Screening for colon cancer and family history of colon cancer. IV sedation per Anesthesia. PROCEDURE: After informed consent was obtained, the patient, was brought into the endoscopy unit. IV sedation was administered by Anesthesia under continuous monitoring. Digital rectal examination was normal. Initially the Olympus CF-160 flexible video colonoscope was then inserted in the rectum, gradually advanced into the cecum without any difficulty. Careful examination was performed as the scope was gradually being withdrawn. Ileocecal valve and the appendiceal orifice were visualized and appeared normal. Prep was excellent. Mucosa of the cecum, ascending colon, transverse colon, descending colon, sigmoid colon, and rectum a ppeared normal. Scattered sigmoid diverticulosis. Retroflexion was performed in the rectum and no lesions were seen. The patient tolerated the procedure well. IMPRESSION: Normal-appearing colon from rectum to cecum with no evidence of colorectal neoplasia . Scattered sigmoid diverticulosis. RECOMMENDATIONS: Findings of this examination were discussed with the patient we'll as his family. He was advised to have a repeat colonoscopy every 5 years because of the strong family history of colon cancer.
[2022-09-05 11:12] VITALS: BP 114/69; PULSE 71; RESP 16
== END | disposition home or self-care (01) ==
LOC: ORWHC2ENDO 08:47
PROVIDERS: ATTEND Internal Medicine Gastroenterology
DX: Z12.11 Encounter for screening for malignant neoplasm of colon (principal); K57.30 Diverticulosis of large intestine without perforation or abscess without bleeding; Z80.0 Family history of malignant neoplasm of digestive organs
CPT/HCPCS: 45378; J2704; J2001

== ENCOUNTER 2022-12-20 05:41 | Emergency (ER) | payer OTHER ==
[2022-12-20] MEDS ORDERED: SODIUM CHLORIDE 0.9% 500 ML 500 ML IV STA (06:19)
[2022-12-20] MEDS ORDERED: ONDANSETRON 4 MG/2 ML VIAL IVP STA (06:19)
[2022-12-20] MEDS ORDERED: SODIUM CHLORIDE 0.9% 1,000 ML IV STA (06:19)
[2022-12-20] MEDS ORDERED: HYDROmorphone 1 MG/ML 1 ML SYRINGE IVP STA (06:20)
[2022-12-20] MEDS ORDERED: KETOROLAC 15 MG/ML 1 ML VIAL IVP STA (06:20)
--- NOTE | 2022-12-20 06:29 | ED ---
General Adult HPI - General Chief complaint: Back Pain/Injury Stated complaint: Side pain, bloating Time Seen by Provider: 12/20/22 06:05 Source: patient, RN notes reviewed Mode of arrival: ambulatory Limitations: no limitations - History of Present Illness Initial comments: 57-year-old male presents emergency Department chief complaint right flank pain. Patient states that he has been having some ongoing issues of last year has seen urology and [facility] Patient states that he was recently placed on prednisone thinking that he has irritation to his nerves because of his ongoing flank pain but states it has worsened. Patient states that makes pain feel better worse. Patient is feels very bloated. Patient states he feels that the prednisone is making things worse. Denies any dysuria hematuria no diarrhea no constipation patient has not taken nothing for pain prior arrival has normal drug ALLERGIES. - Related Data Home Medications Medication Instructions Recorded Confirmed Aspirin 325 - 650 mg PO DAILY PRN 08/30/22 09/05/22 Previous Rx's Medication Instructions Recorded HYDROcodone/APAP 5-325MG [[place] 5] 1 each PO Q6HR PRN #12 tab 12/20/22 Ketorolac [Toradol] 10 mg PO Q8HR #15 tab 12/20/22 Ondansetron Odt [Zofran Odt] 4 mg PO Q8HR PRN #10 tab 12/20/22 Sulfamethox-Tmp 800-160Mg [Bactrim 1 each PO Q12HR #20 tab 12/20/22 Ds] Tamsulosin [Flomax] 0.4 mg PO DAILY #7 cap 12/20/22 Allergies Allergy/AdvReac Type Severity Reaction Status Date / Time No Known Allergies Allergy Verified 12/20/22 05:43 Review of Systems ROS Statement: Those systems with pertinent positive or pertinent negative responses have been documented in the HPI. ROS Other: All systems not noted in ROS Statement are negative. Past Medical History Past Medical History: Osteoarthritis (OA), Sleep Apnea/CPAP/BIPAP Additional Past Medical History / Comment(s): does not use cpap, hx UTI, TREATED WITH LEVAQUIN. Kidney stones,colon polyps History of Any Multi-Drug Resistant Organisms: None Reported Past Surgical History: Appendectomy, Orthopedic Surgery Additional Past Surgical History / Comment(s): 10/31/20 LEFT URETERAL STENT PLACED, KIDNEY STONE. Colonoscopy, corrective toe surgery Lt great toe Past Anesthesia/Blood Transfusion Reactions: No Reported Reaction Past Psychological History: No Psychological Hx Reported Smoking Status: Former smoker Past Alcohol Use History: Occasional Past Drug Use History: None Reported - Past Family History Mother Family Medical History: Pulmonary Embolus General Exam Limitations: no limitations General appearance: alert, in no apparent distress Head exam: Present: atraumatic, normocephalic, normal inspection Eye exam: Present: normal appearance, PERRL, EOMI. Absent: scleral icterus, conjunctival injection, periorbital swelling ENT exam: Present: normal exam, normal oropharynx, mucous membranes moist Neck exam: Present: normal inspection, full ROM. Absent: tenderness, meningismus, lymphadenopathy Respiratory exam: Present: normal lung sounds bilaterally. Absent: respiratory distress, wheezes, rales, rhonchi, stridor Cardiovascular Exam: Present: regular rate, normal rhythm, normal heart sounds. Absent: systolic murmur, diastolic murmur, rubs, gallop, clicks GI/Abdominal exam: Present: soft, normal bowel sounds. Absent: distended, tenderness, guarding, rebound, rigid Back exam: Present: CVA tenderness (R). Absent: CVA tenderness (L) Neurological exam: Present: alert Skin exam: Present: warm, dry, intact, normal color. Absent: rash Course Vital Signs 12/20/22 12/20/22 05:44 06:59 Temperature 98.2 F Pulse Rate 80 68 Respiratory 18 16 Rate Blood Pressure 204/109 158/95 O2 Sat by Pulse 98 98 Oximetry Medical Decision Making - Medical Decision Making Was pt. sent in by a medical professional or institution (, PA, BAG WASHER, urgent care, hospital, or assisted...) When possible be specific @ -No Did you speak to anyone other than the patient for history (EMS, parent, family, police, friend...)? What history was obtained from this source @ -No Did you review nursing and triage notes (agree or disagree)? Why? @ -I reviewed and agree with nursing and triage notes Were old charts reviewed (outside hosp., previous admission, EMS record, old EKG, old radiological studies, urgent care reports/EKG's, assisted records)? Report findings @ -No old charts were reviewed Differential Diagnosis (chest pain, altered mental status, abdominal pain women, abdominal pain men, vaginal bleeding, weakness, fever, dyspnea, syncope, headache, dizziness, GI bleed, back pain, seizure, CVA, palpatations, mental health)? @ -Pyelonephritis,uti, kidney stone, cholecystitis, cholelithiasis, this list is not inclusive EKG interpreted by me (3pts min.). @ -None X-rays interpreted by me (1pt min.). @ -None done CT interpreted by me (1pt min.). @ -CT of abdomen and pelvis shows evidence of hydronephrosis, obstructing 1.1 cm renal pelvis , dependent calcifications within the bladder. U/S interpreted by me (1pt. min.). @ -None done What testing was considered but not performed or refused? (CT, X-rays, U/S, labs)? Why? @ -None What meds were considered but not given or refused? Why? @ -None Did you discuss the management of the patient with other professionals (professionals i.e. , PA, BAG WASHER, lab, RT, psych nurse, social welfare administrator, golf ball molder, teacher, probation officer, caser)? Give summary @ -No Was smoking cessation discussed for >3mins.? @ -No Was critical care preformed (if so, how long)? @ -No] Were there social determinants of health that impacted care today? How? (Homelessness, low income, unemployed, alcoholism, drug addiction, transportation, low edu. Level, literacy, decrease access to med. care, senior living, rehab)? @ -[No] Was there de-escalation of care discussed even if they declined (Discuss DNR or withdrawal of care, Hospice)? DNR status @ -[No] What co-morbidities impacted this encounter? (DM, HTN, Smoking, COPD, CAD, Cancer, CVA, ARF, Chemo, Hep., AIDS, mental health diagnosis, sleep apnea, morbid obesity)? @ -[None] Was patient admitted / discharged? Hospital course, mention meds given and route, prescriptions, significant lab abnormalities, going to OR and other pertinent info. @ -Discharged - patient CT shows evidence of hydronephrosis, obstructing stone patient stones 1.1 cm she is advised follow-up with urology as he may require lithotripsy. Patient is nitrite positive urine but is afebrile, no significant white cells with a urinalysis. Patient will be placed on antibiotics, pain control and follow-up. Return parameters were discussed. Undiagnosed new problem with uncertain prognosis? @ -[No] Drug Therapy requiring intensive monitoring for toxicity (Heparin, Nitro, Insulin, Cardizem)? @ -[No] Were any procedures done? @ -[No] Diagnosis/symptom? @ -Hydronephrosis Acute, or Chronic, or Acute on Chronic? @ -Acute Uncomplicated (without systemic symptoms) or Complicated (systemic symptoms)? @ -Uncomplicated Side effects of treatment? @ -[No] Exacerbation, Progression, or Severe Exacerbation? @ -[No] Poses a threat to life or bodily function? How? (Chest pain, [place], [place], pneumonia, PE, COPD, DKA, ARF, appy, cholecystitis, CVA, Diverticulitis, Homicidal, Suicidal, threat to staff... and all critical care pts) @ -[No] Diagnosis/symptom? @ -Kidney stone Acute, or Chronic, or Acute on Chronic? @ -Acute Uncomplicated (without systemic symptoms) or Complicated (systemic symptoms)? @ -Uncomplicated Side effects of treatment? @ -[none] Exacerbation, Progression, or Severe Exacerbation] @ -[no] Poses a threat to life or bodily function? @ -[no] - Lab Data Result diagrams: 12/20/22 06:27 12/20/22 06:27 Lab Results 12/20/22 12/20/22 12/20/22 Range/Units 06:27 06:27 06:27 WBC 12.2 H (3.8-10.6) k/uL RBC 4.86 (4.30-5.90) m/uL Hgb 15.2 (13.0-17.5) gm/dL Hct 44.2 (39.0-53.0) % MCV 90.8 (80.0-100.0) fL MCH 31.2 (25.0-35.0) pg MCHC 34.4 (31.0-37.0) g/dL RDW 12.3 (11.5-15.5) % Plt Count 231 (150-450) k/uL MPV 7.5 Neutrophils % 74 % Lymphocytes % 17 % Monocytes % 7 % Eosinophils % 1 % Basophils % 1 % Neutrophils # 9.1 H (1.3-7.7) k/uL Lymphocytes # 2.0 (1.0-4.8) k/uL Monocytes # 0.8 (0-1.0) k/uL Eosinophils # 0.1 (0-0.7) k/uL Basophils # 0.1 (0-0.2) k/uL Sodium 140 (137-145) mmol/L Potassium 4.1 (3.5-5.1) mmol/L Chloride 105 (98-107) mmol/L Carbon Dioxide 24 (22-30) mmol/L Anion Gap 11 mmol/L BUN 21 H (9-20) mg/dL Creatinine 0.82 (0.66-1.25) mg/dL Est GFR (CKD-EPI)AfAm >90 (>60 ml/min/1.73 sqM) Est GFR (CKD-EPI)NonAf >90 (>60 ml/min/1.73 sqM) Glucose 122 H (74-99) mg/dL Plasma Lactic Acid Willian (0.7-2.0) mmol/L Calcium 9.1 (8.4-10.2) mg/dL Total Bilirubin 0.9 (0.2-1.3) mg/dL AST 37 (17-59) U/L ALT 47 (4-49) U/L Alkaline Phosphatase 82 (38-126) U/L Total Protein 8.2 (6.3-8.2) g/dL Albumin 4.7 (3.5-5.0) g/dL Amylase 59 (30-110) U/L Lipase 117 (23-300) U/L Urine Color Yellow Urine Appearance Clear (Clear) Urine pH 5.5 (5.0-8.0) Ur Specific [place] 1.018 (1.001-1.035) Urine Protein Trace H (Negative) Urine Glucose (UA) Negative (Negative) Urine Ketones Negative (Negative) Urine Blood Moderate H (Negative) Urine Nitrite Positive (Negative) Urine Bilirubin Negative (Negative) Urine Urobilinogen <2.0 (<2.0) mg/dL Ur Leukocyte Esterase Small H (Negative) Urine RBC 32 H (0-5) /hpf Urine WBC 9 H (0-5) /hpf Ur Squamous Epith Cells <1 (0-4) /hpf Urine Bacteria Rare H (None) /hpf Urine Mucus Rare H (None) /hpf 01/19/23 Range/Units 06:27 WBC (3.8-10.6) k/uL RBC (4.30-5.90) m/uL Hgb (13.0-17.5) gm/dL Hct (39.0-53.0) % MCV (80.0-100.0) fL MCH (25.0-35.0) pg MCHC (31.0-37.0) g/dL RDW (11.5-15.5) % Plt Count (150-450) k/uL MPV Neutrophils % % Lymphocytes % % Monocytes % % Eosinophils % % Basophils % % Neutrophils # (1.3-7.7) k/uL Lymphocytes # (1.0-4.8) k/uL Monocytes # (0-1.0) k/uL Eosinophils # (0-0.7) k/uL Basophils # (0-0.2) k/uL Sodium (137-145) mmol/L Potassium (3.5-5.1) mmol/L Chloride (98-107) mmol/L Carbon Dioxide (22-30) mmol/L Anion Gap mmol/L BUN (9-20) mg/dL Creatinine (0.66-1.25) mg/dL Est GFR (CKD-EPI)AfAm (>60 ml/min/1.73 sqM) Est GFR (CKD-EPI)NonAf (>60 ml/min/1.73 sqM) Glucose (74-99) mg/dL Plasma Lactic Acid Willian 1.4 (0.7-2.0) mmol/L Calcium (8.4-10.2) mg/dL Total Bilirubin (0.2-1.3) mg/dL AST (17-59) U/L ALT (4-49) U/L Alkaline Phosphatase (38-126) U/L Total Protein (6.3-8.2) g/dL Albumin (3.5-5.0) g/dL Amylase (30-110) U/L Lipase (23-300) U/L Urine Color Urine Appearance (Clear) Urine pH (5.0-8.0) Ur Specific [place] (1.001-1.035) Urine Protein (Negative) Urine Glucose (UA) (Negative) Urine Ketones (Negative) Urine Blood (Negative) Urine Nitrite (Negative) Urine Bilirubin (Negative) Urine Urobilinogen (<2.0) mg/dL Ur Leukocyte Esterase (Negative) Urine RBC (0-5) /hpf Urine WBC (0-5) /hpf Ur Squamous Epith Cells (0-4) /hpf Urine Bacteria (None) /hpf Urine Mucus (None) /hpf Disposition Clinical Impression: Kidney stone on right side, Hydronephrosis Disposition: HOME SELF-CARE Condition: Stable Instructions (If sedation given, give patient instructions): Kidney Stones (ED) Additional Instructions: Please return to the Emergency Department if symptoms worsen or any other concerns. Prescriptions: Sulfamethox-Tmp 800-160Mg [Bactrim Ds] 1 each PO Q12HR #20 tab Tamsulosin [Flomax] 0.4 mg PO DAILY #7 cap HYDROcodone/APAP 5-325MG [[place] 5] 1 each PO Q6HR PRN #12 tab PRN Reason: Pain Ketorolac [Toradol] 10 mg PO Q8HR #15 tab Ondansetron Odt [Zofran Odt] 4 mg PO Q8HR PRN #10 tab PRN Reason: Nausea Is patient prescribed a controlled substance at d/c from ED?: Yes When asked, does pt state using other controlled substances?: No If prescribed controlled substance>3 days was MAPS reviewed?: Prescribed <3 Days If opioid is for acute pain is fill amount 7 days or less?: Yes If Rx opioid, was Start Talking consent form obtained?: Yes Referrals: Mark Cruz MD [Primary Care Provider] - 1-2 days Uziel Castro MD [STAFF PHYSICIAN] - 1-2 days Time of Disposition: 08:14
[2022-12-20 06:37] LABS: Basophils # (A) 0.1 k/uL (0-0.2); Basophils % (A) 1 %; Eosinophils # (A) 0.1 k/uL (0-0.7); Eosinophils % (A) 1 %; HCT 44.2 % (39.0-53.0); HGB 15.2 gm/dL (13.0-17.5); Lymphocytes % (A) 17 %; MCH 31.2 pg (25.0-35.0); MCHC 34.4 g/dL (31.0-37.0); MCV 90.8 fL (80.0-100.0); Mean Platelet Volume 7.5; Monocytes # (A) 0.8 k/uL (0-1.0); Monocytes % (A) 7 %; Neutrophils # (A) 9.1 k/uL (1.3-7.7); Neutrophils % (A) 74 %; Platelet Count 231 k/uL (150-450); RBC 4.86 m/uL (4.30-5.90); RDW 12.3 % (11.5-15.5); WBC 12.2 k/uL (3.8-10.6)
[2022-12-20 07:00] VITALS: PULSE 68; RESP 16
[2022-12-20 07:00] LABS: Appearance,Urine Clear (Clear); Bacteria,Urine Rare /hpf; Bilirubin,Urine Negative (Negative); Blood,Urine Moderate (Negative); Color,Urine Yellow; Glucose,Urine (UA) Negative (Negative); Ketones,Urine Negative (Negative); Leukocyte Esterase,Urine Small (Negative); Mucus,Urine Rare /hpf; Nitrite,Urine Positive (Negative); PH, Urine 5.5 (5.0-8.0); Protein,Urine Trace (Negative); RBC,Urine 32 /hpf (0-5); Specific Gravity,Urine 1.018 (1.001-1.035); Squamous Epithelial Cell,Urine <1 /hpf (0-4); Urobilinogen,Urine <2.0 mg/dL (<2.0); WBC,Urine 9 /hpf (0-5)
[2022-12-20 07:01] LABS: ALT 47 U/L (4-49); AST 37 U/L (17-59); African American GFR (CKD) >90 (>60 ml/min/1.73 sqM); Albumin 4.7 g/dL (3.5-5.0); Alkaline Phosphatase 82 U/L (38-126); Amylase 59 U/L (30-110); Anion Gap 11 mmol/L; Blood Urea Nitrogen 21 mg/dL (9-20); Calcium 9.1 mg/dL (8.4-10.2); Carbon Dioxide 24 mmol/L (22-30); Chloride 105 mmol/L (98-107); Glucose 122 mg/dL (74-99); Lipase 117 U/L (23-300); Non-African American GFR(CKD) >90 (>60 ml/min/1.73 sqM); Potassium 4.1 mmol/L (3.5-5.1); Sodium 140 mmol/L (137-145); Total Bilirubin 0.9 mg/dL (0.2-1.3); Total Protein 8.2 g/dL (6.3-8.2)
--- NOTE | 2022-12-20 07:33 | CT ---
EXAMINATION TYPE: CT abdomen pelvis w con DATE OF EXAM: 12/20/2022 COMPARISON: 08/27/2022 INDICATION: RIGHT FLANK PAIN DLP: 3792.4 mGycm, Automated exposure control for dose reduction was used. CONTRAST: 100 ML mL of Isovue 300. Study performed without Oral Contrast TECHNIQUE: Axial images were obtained from above the diaphragm to the pubic rami in the axial plane a t 5 mm thick sections. Reconstructed images are reviewed on the computer in the coronal plane. FINDINGS: Limited CT sections are obtained the lung bases. The lung bases are clear. CT ABDOMEN: Liver: Normal Spleen: Normal Pancreas: Normal Adrenal glands: The adrenal glands are normal. Gallbladder: Normal Kidneys: There is a 1.1 cm right mid to upper pole renal stone with mild right hydronephrosis. A non obstructing inferior pole right renal stone is present measuring 1.0 cm. There is a punctate posterio r inferior left renal stone without obstruction. Anterior 1.9 cm left renal cyst is present. Aorta: Vascular calcification is within the aorta. Inferior vena cava: Normal. CT PELVIS: Loops of bowel within the abdomen and pelvis are normal. Scattered diverticuli within the sigmoid co avtar. This study is lateral contrast material following evaluation. Appendix: Not visualized. No dilated tubular structure or inflammatory changes evident. Urinary bladder: There are a pair of urinary bladder calcifications in the dependent portion 0.3 and 0.4 cm in size. Genitourinary structures: Prostate is prominent Osseous structures: No suspicious lytic or sclerotic lesions. Degenerative changes are within the lum bar spine. IMPRESSIONS: 1. 1.1 cm mid to upper right renal calcification with mild right hydronephrosis. 2 there are several bilateral nonobstructing renal stones. 3. Couple of punctate calcifications are within the dependent portion of the urinary bladder.
[2022-12-20 08:21] VITALS: BP 167/92; TEMP 97.6
== END 2022-12-20 08:40 | disposition home or self-care (01) ==
LOC: EC 05:41
DX: N13.30 Unspecified hydronephrosis (principal); N20.0 Calculus of kidney; M19.90 Unspecified osteoarthritis, unspecified site; Z87.891 Personal history of nicotine dependence; Z79.82 Long term (current) use of aspirin
CPT/HCPCS: 36415; 80053; 82150; 83605; 83690; 85025; 81001; 74177; 99284; 96374; 96375 ×2; 96361; J2405; J1170; J1885

== ENCOUNTER → 2022-12-25 | Day surgery (SDC) | payer OTHER ==
[2022-12-21 12:30] VITALS: BMI 47.4
[~2022-12-25] MED LIST changes: +DEXAMETHASONE SOD PHOSPHATE 4 MG/ML 1 ML VIAL IV ONE; +HYDROmorphone 0.5 MG/0.5 ML SYRINGE IVP PRN; +IOPAMIDOL-370 50ML BTL IRRIGATION ONE; +KETOROLAC 15 MG/ML 1 ML VIAL ONE; -LIDOCAINE 1% (10MG/ML) FOR IV START INTRADERMA PRN; +MIDAZOLAM 2 MG/2 ML VIAL IV PRN; +MIDAZOLAM 2 MG/2 ML VIAL ONE; +ONDANSETRON 4 MG/2 ML VIAL IVP ONE; +SCOPOLAMINE 1 MG/72 HR PATCH TRANSDERM ONE; +SUCCINYLCHOLINE CHLORIDE 200 MG/10 ML VIAL IV ONE; +ceFAZolin 3 GM in SODIUM CHLORIDE 0.9% 100 ML IVPB PRN; +fentaNYL (PF) 50 MCG/1 ML VIAL IVP ONE; +fentaNYL (PF) 50 MCG/ML 2 ML AMP ONE
--- NOTE | 2022-12-25 11:00 | P.HPIHPCON ---
History of Present Illness H&P Date: 12/25/22 Chief Complaint: Right-sided renal stone This is a 57-year-old female with a history of 1.1 cm right-sided upper pole stone, 1 cm right lower pole stone. He is symptomatic from his stones. Note the stone is causing obstruction of the upper pole. Option of right-sided uret eroscopy with holmium laser was discussed with him in detail. Discussed with him the risk which includes but not limited to bleeding, infection, injury to the ureter. Risk of anesthesia was also discussed with him. Of note he has history of chronic right-sided flank pain. Discussed the potential of persistent right flank pain even with stone removal. He understood all the risk and agreed to proceed Consent for Procedure: I have explained the operation/procedure to the patient, including the risks, benefits, side effects, alternative therapies (including not receiving the proposed treatment or service), the likelihood of the patient achieving his/her goals, and potential recuperation problems for the procedure/sedation/analgesia, as well as any blood products, if indicated. I also explained to the patient the risks, benefits and side effects of the alternatives, as well as the risks related to not receiving the proposed procedure, care, treatment, or services. Past Medical History Past Medical History: Osteoarthritis (OA), Sleep Apnea/CPAP/BIPAP Additional Past Medical History / Comment(s): does not use cpap., Kidney stones.,colon polyps., chronic back pain, BPH. History of Any Multi-Drug Resistant Organisms: None Reported Past Surgical History: Appendectomy, Orthopedic Surgery Additional Past Surgical History / Comment(s): Lithotripsy, LEFT URETERAL STENT , KIDNEY STONE. Colonoscopy, left great toe surgery Past Anesthesia/Blood Transfusion Reactions: No Reported Reaction Past Psychological History: No Psychological Hx Reported Smoking Status: Former smoker Past Alcohol Use History: Occasional Additional Past Alcohol Use History / Comment(s): quit smoking 2008, smoked for 20 yrs- < 1 PPD Past Drug Use History: Marijuana Additional Drug Use History / Comment(s): occasional marijuana use - Past Family History Mother Family Medical History: No Reported History Medications and Allergies Home Medications Medication Instructions Recorded Confirmed Type HYDROcodone/APAP 5-325MG [[place] 5] 1 each PO Q6HR PRN #12 tab 12/20/22 12/21/22 Rx Ketorolac [Toradol] 10 mg PO Q8HR #15 tab 12/20/22 12/21/22 Rx Ondansetron Odt [Zofran Odt] 4 mg PO Q8HR PRN #10 tab 12/20/22 12/21/22 Rx Sulfamethox-Tmp 800-160Mg [Bactrim 1 each PO Q12HR #20 tab 12/20/22 12/21/22 Rx Ds] Cholecalciferol (Vitamin D3) 125 mcg PO DAILY 12/21/22 12/21/22 History [Vitamin D3 (125 MCG = 5,000 IU)] Vitamin B (Unknown Dose) 1 tab PO DAILY 12/21/22 History Allergies Allergy/AdvReac Type Severity Reaction Status Date / Time epinephrine Allergy Unknown written on Verified 12/21/22 12:[address] jarvis Surgical - Exam - General no distress, moderate pain - Eyes normal ocular movement, no pale - ENT normal nares - Respiratory normal expansion, normal respiratory effort - Abdomen Abdomen: soft, non tender Assessment and Plan Assessment: Or for right-sided ureteroscopy, holmium laser lithotripsy, stone basketing and stent insertion
[2022-12-25 15:04] VITALS: RESP 16
[2022-12-25 15:04] LABS: Glucose,Whole Blood 87 mg/dL (70-110)
--- NOTE | 2022-12-25 15:19 | XR ---
EXAMINATION TYPE: XR KUB DATE OF EXAM: 12/25/2022 Comparison: CT 12/20/2022 Clinical History: 57-year-old male LITHOTRIPSY WITH DR CORTEZ 12/25/22 Findings: 1.2 and 1.0 cm calcifications in the right kidney are redemonstrated. Nonobstructive bowel gas patter n. Mild stool within the right side of the abdomen. Mild degenerative change at both hips. Impression: A couple right renal calculi measuring up to 1.2 cm. Corresponding to the calculi seen on CT.
[2022-12-25 17:22] VITALS: TEMP 98
--- NOTE | 2022-12-25 17:47 | FL ---
Intraoperative/procedural fluoroscopic services were provided for right renal stone with a right uret eral stent identified. Total fluoroscopy time is 106.8 seconds with a total of 1 submitted image to P MISAEL. Please see the operative note for further details.
--- NOTE | 2022-12-25 17:53 | P.OP ---
Date of Procedure: 12/25/22 Preoperative Diagnosis: Right renal stones Postoperative Diagnosis: Same Procedure(s) Performed: Cystoscopy, right ureteroscopy, ureteral ballon dilation and stent insertion Implants: 6-Slovak by 26 cm stent and the right ureter Anesthesia: TERESSA Surgeon: Uziel Castro Estimated Blood Loss (ml): 5 Pathology: none sent Condition: stable Disposition: PACU Indications for Procedure: This is a 57-year-old female with a history of 1.1 cm right-sided upper pole stone, 1 cm right lower pole stone. He is symptomatic from his stones. Note the stone is causing obstruction of the upper pole. Option of right-sided ureteroscopy with holmium laser was discussed with him in detail. Discussed with him the risk which includes but not limited to bleeding, infection, injury to the ureter. Risk of anesthesia was also discussed with him. Of note he has history of chronic right-sided flank pain. Discussed the potential of persistent right flank pain even with stone removal. He understood all the risk and agreed to proceed Operative Findings: Right-sided proximal ureteral stricture, unable to pass the scope past the stricture Description of Procedure: Patient brought to the operating room, general anesthesia was induced. He was prepped and draped in sterile fashion and placed in dorsal lithotomy position. Cystoscopy fitted with 21-Slovak sheath was inserted per urethra, cystoscopy was performed which showed evidence of an obstructed median lobe, but otherwise a normal bladder. Attention was then carried to the right ureteral orifice, which was intubated with a sensor wire. Next a 1113 Slovak access sheath was passed over the wire and into the proximal ureter. Next I advance the ureteroscope through the access sheath, a stricture was encountered in the proximal ureter, I attempted to navigate the scope past the stricture but was unsuccessful. At this time a wire was readvanced through the scope and the scope was removed with the wire in place. Next a ureteral balloon dilator was passed over the wire, and the stricture was dilated to 12-Slovak under fluoroscopy. Next the flexible ureteroscope was reinserted through the access sheath, multiple attempts were made to advance past the stricture into the kidney but was unsuccessful. Given this finding decision was made to proceed with stent insertion. At this time a sensor wire was advanced through the ureteroscope and the ureteroscope was withdrawn with the wire in place. Next a ureteral stent was passed over the wire, the proximal curl was visualized on fluoroscopy and the distal curl was visualized using the cystoscope. The bladder was emptied at the end of the case. Patient tolerated procedure well was taken to recovery in stable condition
[2022-12-25 18:58] VITALS: BP 141/73; PULSE 70
== END ==
LOC: OR 14:29
PROVIDERS: ATTEND Urology
DX: N20.0 Calculus of kidney (principal); N13.5 Crossing vessel and stricture of ureter without hydronephrosis; G47.33 Obstructive sleep apnea (adult) (pediatric); Z99.89 Dependence on other enabling machines and devices; Z87.891 Personal history of nicotine dependence; F12.20 Cannabis dependence, uncomplicated; N40.0 Benign prostatic hyperplasia without lower urinary tract symptoms; Z79.1 Long term (current) use of non-steroidal anti-inflammatories (NSAID); Z79.2 Long term (current) use of antibiotics; Z79.83 Long term (current) use of bisphosphonates; Z79.891 Long term (current) use of opiate analgesic; Z79.899 Other long term (current) drug therapy; Z90.49 Acquired absence of other specified parts of digestive tract; Z98.890 Other specified postprocedural states; M19.90 Unspecified osteoarthritis, unspecified site; G89.29 Other chronic pain; Z88.8 Allergy status to other drugs, medicaments and biological substances
CPT/HCPCS: 74018; 52332; 52341; J1100; J0690; J2405; Q9967; J3010

== ENCOUNTER → 2023-07-19 | Outpatient (CLI) | payer OTHER ==
--- NOTE | 2023-07-23 09:03 | MR ---
EXAMINATION TYPE: MR elbow LT wo/w con DATE OF EXAM: 07/19/2023 COMPARISON: NONE HISTORY: 57-year-old male R22.32, Extreme Pain in Lt elbow and Lt hand with limited movement x30 days Technique: Multiplanar, multisequence images of the left elbow were obtained before and after adminis tration of 14ml mL intravenous Gadavist gadolinium contrast. FINDINGS: There is an thickening and prominent intermediate signal at the insertion of the distal biceps tendon without discrete tear. Triceps insertion is intact. The radiocapitellar and ulnar trochlear joints appear intact. No joint effusion. There is heterogeneous signal at the common extensor tendon origin with small areas of intrasubstance fraying. There appears to be a partial tear at the humeral attachment of the RCL, axial image 17 an d coronal image 18. Additional intermediate signal at the common flexor tendon origin. Underlying UCL appears intact. There is some degenerative spurring and degenerative subchondral signal change at the proximal radial ulnar joint. No acute or healing fracture. No suspicious bone marrow replacement. No abnormal enhancing lesion is identified. IMPRESSION: 1. Moderate insertional distal biceps tendinosis but without tear at this time. 2. Common extensor origin tendinosis with small areas of intrasubstance change/tearing. There also ap pears to be a partial tear at the humeral attachment of the RCL. 3. Mild tendinosis at the common flexor origin. 4. Mild osteoarthritic change at the proximal radioulnar joint.
== END | disposition home or self-care (01) ==
LOC: RADMRIMAIN 21:30
PROVIDERS: ATTEND Orthopaedic Surgery
DX: R22.32 Localized swelling, mass and lump, left upper limb (principal); M18.12 Unilateral primary osteoarthritis of first carpometacarpal joint, left hand; M19.012 Primary osteoarthritis, left shoulder; M67.824 Other specified disorders of tendon, left elbow; D17.22 Benign lipomatous neoplasm of skin and subcutaneous tissue of left arm; M25.522 Pain in left elbow; M25.532 Pain in left wrist; R20.2 Paresthesia of skin; M79.622 Pain in left upper arm
CPT/HCPCS: 73223; A9585

== ENCOUNTER → 2023-10-25 | Outpatient (CLI) | payer OTHER ==
--- NOTE | 2023-10-27 21:17 | CT ---
EXAMINATION TYPE: CT abdomen pelvis wo con DATE OF EXAM: 10/25/2023 COMPARISON: 12/20/2022 INDICATION: right flank pain DLP: 2952.1 mGycm, Automated exposure control for dose reduction was used. CONTRAST: 0 mL of Isovue 300. Study performed without Oral Contrast TECHNIQUE: Axial images were obtained from above the diaphragm to the pubic rami in the axial plane a t 3 mm thick sections. Reconstructed images are reviewed on the computer in the coronal plane. FINDINGS: Limited CT sections are obtained the lung bases. The lung bases are clear. CT ABDOMEN: Liver: Normal Spleen: Normal Pancreas: Normal Adrenal glands: The adrenal glands are normal. Gallbladder: Subtle gallstone may be present. Example image series 3 image 49. Gallbladder is otherwi se unremarkable. Kidneys: No masses are evident. No hydronephrosis is present. Peripelvic cysts are likely present o n the upper pole right kidney. There is a 0.3 cm calcification mid left kidney without obstruction. Subtle cortical medullary calcifications may be in the upper pole left kidney without obstruction. Pr evious right renal stones not identified. Aorta: Unremarkable. Inferior vena cava: Normal. CT PELVIS: Loops of bowel within the abdomen and pelvis are normal. The study is without oral contrast limit ing bowel evaluation. Appendix: Not visualized. Correlate with surgical history. No suspicious inflammatory changes or dila kyle tubular structures evident. Urinary bladder: Normal. Genitourinary structures: Prostate is slightly prominent Osseous structures: No suspicious lytic or sclerotic lesions. IMPRESSION: 1. No suspicious abnormality to account for right flank pain. 2. Nonobstructing 0.3 cm left mid renal stone. Consider potential medullary sponge kidney left kidney .
== END | disposition home or self-care (01) ==
LOC: RADCTMAIN 15:32
PROVIDERS: ATTEND Urology
DX: N20.0 Calculus of kidney (principal)
CPT/HCPCS: 74176

== ENCOUNTER → 2024-04-15 | Outpatient (CLI) | payer OTHER ==
--- NOTE | 2024-04-16 07:28 | CA ---
Transthoracic Echo Report Name: Davey Olvera Age: 58 Gender: M : 1965 Exam Date: 04/15/2024 17:24 Exam Location: [facility] Ht (in): 71 Wt (lb): 338 Ordering Physician: Elier Angelo MD Attending/Referring Phys: Can Doffer Sylvia Eric RDCS Procedure CPT: Indications: G47.33 OBSTRUCTIVE SLEEP APNEA (ADULT) (PEDIATRIC) Cardiac Hx: Technical Quality: Technically difficult study Contrast 1: Definity Total Dose (mL): 2 Contrast 2: Total Dose (mL): MEASUREMENTS (Male / Female) Normal Values 2D ECHO LV Diastolic Diameter PLAX 5.1 cm 4.2 - 5.9 / 3.9 - 5.3 cm LV Systolic Diameter PLAX 3.6 cm IVS Diastolic Thickness 1.1 cm 0.6 - 1.0 / 0.6 - 0.9 cm LVPW Diastolic Thickness 1.2 cm 0.6 - 1.0 / 0.6 - 0.9 cm LV Relative Wall Thickness 0.4 RV Internal Dim ED PLAX 4.4 cm LVOT Diameter 2.6 cm LV Diastolic Volume MOD BP 140.5 cm??? 67 - 155 / 56 - 104 cm??? LV Systolic Volume MOD BP 72.7 cm??? 22 - 58 / 19 - 49 cm??? LV Ejection Fraction MOD BP 48.2 % >= 55 % LV Cardiac Index MOD BP 1498.9 cm???/min???m??? LV Diastolic Volume MOD 4C 148.5 cm??? LV Systolic Volume MOD 4C 76.4 cm??? LV Ejection Fraction MOD 4C 48.6 % LV Cardiac Index MOD 4C 1596.0 cm???/min???m??? LV Diastolic Length 4C 9.2 cm LV Systolic Length 4C 8.3 cm LV Diastolic Volume MOD 2C 122.6 cm??? LV Systolic Volume MOD 2C 64.6 cm??? LV Ejection Fraction MOD 2C 47.3 % LV Cardiac Index MOD 2C 1281.7 cm???/min???m??? LV Diastolic Length 2C 8.5 cm LV Systolic Length 2C 7.7 cm LA Volume 98.6 cm??? 18 - 58 / 22 - 52 cm??? LA Volume Index 34.6 cm???/m??? 16 - 28 cm???/m??? Ascending Aorta Diameter 4.1 cm DOPPLER AV Peak Velocity 102.2 cm/s AV Peak Gradient 4.2 mmHg AV Mean Velocity 67.6 cm/s AV Mean Gradient 2.1 mmHg AV Velocity Time Integral 21.1 cm LVOT Peak Velocity 82.5 cm/s LVOT Peak Gradient 2.7 mmHg LVOT Velocity Time Integral 16.4 cm LVOT Stroke Volume 90.3 cm??? LVOT Stroke Volume Index 34.3 ml/m??? LVOT Cardiac Index 1996.7 cm???/min???m??? AV Area Cont Eq vti 4.3 cm??? AV Area Cont Eq pk 4.4 cm??? MV Area PHT 4.0 cm??? Mitral E Point Velocity 64.6 cm/s Mitral A Point Velocity 64.6 cm/s Mitral E to A Ratio 1.0 MV Deceleration Time 190.9 ms PV Peak Velocity 94.7 cm/s PV Peak Gradient 3.6 mmHg FINDINGS Left Ventricle Left ventricular ejection fraction is estimated at 50-55 %. Left ventricular systolic function borderline normal. Moderately increased left ventricular systolic volume. No segmental wall motion abnormalities. Right Ventricle Moderate right ventricular dilatation with normal function. Unable to estimate the right ventricular systolic pressure. Right Atrium Right atrium not well visualized. Left Atrium Moderately increased left atrial volume. Mildly increased left atrial area. Mitral Valve Structurally normal mitral valve. No mitral stenosis, regurgitation or prolapse. Aortic Valve Trileaflet aortic valve. No aortic valve stenosis or regurgitation. Tricuspid Valve Structurally normal tricuspid valve. No tricuspid stenosis, regurgitation or prolapse. Pulmonic Valve Pulmonic valve not well visualized. No pulmonic stenosis. No pulmonic regurgitation. Pericardium No pericardial effusion. Aorta Aortic root not well visualized. Ascending aorta mildly enlarged. CONCLUSIONS Technically difficult study. Definity ECHO contrast used for improved visualization of the endocardial borders (inadequate visualization of two or more contiguous segments). Left ventricular systolic function borderline normal with no segmental wall motion abnormality Limited Doppler study Previewed by: Dr. Sascha Granados MD (Electronically Signed) Final Date: 16 Apr 2024 07:27
== END | disposition home or self-care (01) ==
LOC: RADECHMAIN 17:22
PROVIDERS: ATTEND Student in an Organized Health Care Education/Training Program
DX: G47.33 Obstructive sleep apnea (adult) (pediatric) (principal); E66.9 Obesity, unspecified; Z87.891 Personal history of nicotine dependence
CPT/HCPCS: 93306; Q9957

== ENCOUNTER → 2024-11-13 | Outpatient (CLI) | payer OTHER ==
--- NOTE | 2024-11-13 22:07 | MR ---
EXAMINATION TYPE: MR shoulder RT wo con DATE OF EXAM: 11/13/2024 8:24 PM COMPARISON: None. CLINICAL INDICATION: Male, 58 years old with history of M25.311 OTHER INSTABILITY, RIGHT S M19.011 M2 5.511, Right shoulder pain x 1 yr, no trauma. Possible rotator cuff tear IV Contrast: cc (None if empty) TECHNIQUE: Multiplanar, multisequence imaging of the right shoulder is performed without contrast. FINDINGS: Rotator Cuff: Intact infraspinatus tendon. Complete retracted tear of the anterior two thirds fibers of the supraspinatus tendon supraspinatus tendon. Heterogeneous intact subscapularis tendon with surr ounding fluid. Rotator cuff muscle bulk is preserved. Acromioclavicular Joint: [id number] narrowing and spurring along with capsular hypertrophy of the acromioclavicular joint. Underlying fat plane is early well-preserved. Glenohumeral Joint: Small to moderate-sized joint effusion. No significant spurring. Labrum: Increased signal superior labrum consistent with degenerative tear Biceps Tendon: The long head of biceps is in normal location within bicipital groove. Intracapsular p ortion not well seen likely intact. Bone marrow signal: Heterogeneous increased T2 signal at the acromioclavicular joint. Other: No additional significant abnormality is appreciated. IMPRESSION: 1. Significant retracted tear of at least anterior two thirds fibers of the supraspinatus tendon. 2. Moderate to severe AC joint arthropathy. 3. Degenerative superior labral tear. 4. Small to moderate sized glenohumeral joint effusion. [facility], , 11/13/2024 10:05 PM
== END | disposition home or self-care (01) ==
LOC: RADMRIMAIN 19:12
PROVIDERS: ATTEND Orthopaedic Surgery
DX: S43.431A Superior glenoid labrum lesion of right shoulder, initial encounter (principal); M25.311 Other instability, right shoulder; M19.011 Primary osteoarthritis, right shoulder

== ENCOUNTER 2025-01-01 22:13 | Emergency (ER) | payer OTHER ==
[2025-01-01 22:19] VITALS: RESP 18; TEMP 98.7
--- NOTE | 2025-01-01 22:36 | ED ---
Lower Extremity Injury HPI - General Chief Complaint: Extremity Injury, Lower Stated Complaint: Fall R Leg Injury Time Seen by Provider: 01/01/25 22:34 Source: patient, RN notes reviewed Mode of arrival: wheelchair Limitations: no limitations - History of Present Illness Initial Comments: 59-year-old male presenting with right knee injury 1 hour ago. States he was walking down 3 steps when he slid down the stairs as he was leading with his left foot, and landed wrong on his right foot and felt a snap in his right knee. He is having pain just superior and medial to the right knee. He is not able to weight-bear. States he has no health conditions and does not take any pills. Denies head injury. No other injuries. - Related Data Home Medications Medication Instructions Recorded Confirmed Cholecalciferol (Vitamin D3) 125 mcg PO DAILY 12/21/22 01/14/23 [Vitamin D3 (125 MCG = 5,000 IU)] Vitamin B (Unknown Dose) 1 tab PO DAILY 12/21/22 01/14/23 Tamsulosin [Flomax] 0.4 mg PO DAILY 01/14/23 01/14/23 Previous Rx's Medication Instructions Recorded Cephalexin [Keflex] 500 mg PO Q8HR #15 cap 01/17/23 Meloxicam [Mobic] 15 mg PO DAILY PRN #14 tab 01/17/23 HYDROcodone/APAP 5-325MG [[place] 5] 1 each PO Q6HR PRN #12 tab 01/01/25 Allergies Allergy/AdvReac Type Severity Reaction Status Date / Time No Known Allergies Allergy Verified 01/01/25 22:19 Review of Systems ROS Statement: Those systems with pertinent positive or pertinent negative responses have been documented in the HPI. ROS Other: All systems not noted in ROS Statement are negative. Past Medical History Past Medical History: Osteoarthritis (OA), Sleep Apnea/CPAP/BIPAP Additional Past Medical History / Comment(s): does not use cpap., Kidney stones.,colon polyps., chronic back pain, BPH. History of Any Multi-Drug Resistant Organisms: None Reported Past Surgical History: Appendectomy, Orthopedic Surgery Additional Past Surgical History / Comment(s): Lithotripsy, LEFT URETERAL STENT , KIDNEY STONE. Colonoscopy, left great toe surgery Past Anesthesia/Blood Transfusion Reactions: No Reported Reaction Past Psychological History: No Psychological Hx Reported Smoking Status: Former smoker Past Alcohol Use History: Occasional Past Drug Use History: Marijuana - Past Family History Mother Family Medical History: No Reported History General Exam Limitations: no limitations General appearance: alert, in no apparent distress Head exam: Present: atraumatic, normocephalic, normal inspection Eye exam: Present: normal appearance, PERRL, EOMI. Absent: scleral icterus, conjunctival injection, periorbital swelling Right Upper Leg exam: Present: normal inspection, full ROM. Absent: tenderness, swelling Knee exam: Present: normal inspection, tenderness (Point tenderness superior and medial to right knee), swelling, pain/laxity with valgus. Absent: full ROM (Limited range of motion of right knee), abrasion, laceration, deformity, erythema, pain/laxity with varus Lower Leg exam: Present: normal inspection, full ROM. Absent: tenderness, swelling Ankle exam: Present: normal inspection, full ROM. Absent: tenderness, swelling Foot/Toe exam: Present: normal inspection, full ROM. Absent: tenderness, swelling Neurovascular tendon exam: Present: no vascular compromise. Absent: pulse deficit, abnormal cap refill, sensory deficit Neurological exam: Present: alert, oriented X3 Psychiatric exam: Present: normal affect, normal mood Skin exam: Present: warm, dry, intact, normal color. Absent: rash Course Vital Signs 01/01/25 22:15 Temperature 98.7 F Pulse Rate 72 Respiratory 18 Rate Blood Pressure 173/98 O2 Sat by Pulse 99 Oximetry Medical Decision Making - Medical Decision Making Was pt. sent in by a medical professional or institution ([facility], [employer], urgent care, hospital, or group home...) When possible be specific @ -No Did you speak to anyone other than the patient for history (EMS, parent, family, police, friend...)? What history was obtained from this source @ -No Did you review nursing and triage notes (agree or disagree)? Why? @ -I reviewed and agree with nursing and triage notes Were old charts reviewed (outside hosp., previous admission, EMS record, old EKG, old radiological studies, urgent care reports/EKG's, group home records)? Report findings @ -No old charts were reviewed Differential Diagnosis (chest pain, altered mental status, abdominal pain women, abdominal pain men, vaginal bleeding, weakness, fever, dyspnea, syncope, headache, dizziness, GI bleed, back pain, seizure, CVA, palpatations, mental health, musculoskeletal)? @ -Differential Musculoskeletal Muscular strain, contusion, ligament sprain, fracture, arthritis, septic arthritis, bursitis, cellulitis, muscle spasm, nerve compression, DVT, arterial occlusion, herpes zoster, electrolyte abnormality, tumor.... This is not meant to be in all inclusive list EKG interpreted by me (3pts min.). @ -None X-rays interpreted by me (1pt min.). @ -X-ray right knee interpreted by me reveals no acute process CT interpreted by me (1pt min.). @ -None done U/S interpreted by me (1pt. min.). @ -None done What testing was considered but not performed or refused? (CT, X-rays, U/S, labs)? Why? @ -None What meds were considered but not given or refused? Why? @ -None Did you discuss the management of the patient with other professionals (professionals i.e. , PA, [employer], lab, RT, psych nurse, neonatal social worker, wedding decorator, teacher, conservation officer, pillowcase maker)? Give summary @ -No Was smoking cessation discussed for >3mins.? @ -No Was critical care preformed (if so, how long)? @ -No Were there social determinants of health that impacted care today? How? (Homelessness, low income, unemployed, alcoholism, drug addiction, transportation, low edu. Level, literacy, decrease access to med. care, retirement, rehab)? @ -No Was there de-escalation of care discussed even if they declined (Discuss DNR or withdrawal of care, Hospice)? DNR status @ -No What co-morbidities impacted this encounter? (DM, HTN, Smoking, COPD, CAD, Cancer, CVA, ARF, Chemo, Hep., AIDS, mental health diagnosis, sleep apnea, morbid obesity)? @ -None Was patient admitted / discharged? Hospital course, mention meds given and route, prescriptions, significant lab abnormalities, going to OR and other pertinent info. @ -Discharge. This is a 59-year-old male presenting with right knee injury prior to arrival. Patient is unable to weight-bear. There is point tenderness superior and medial to right knee. Patient was provided with dose of Toradol for supportive care. X-ray right knee interpreted by me reveals no acute process. Discussed x-ray results with patient. Discussed diagnosis of right knee sprain. Patient was provided with knee immobilizer and crutches and instructed to remain nonweightbearing until orthopedic follow-up next week. Patient was provided with short course of [place] to use for pain as needed. Appropriate return precautions and supportive care/follow-up care discussed. Case was discussed with my ED attending Dr. Ng Undiagnosed new problem with uncertain prognosis? @ -No Drug Therapy requiring intensive monitoring for toxicity (Heparin, Nitro, Insulin, Cardizem)? @ -No Were any procedures done? @ -No Diagnosis/symptom? @ -Right knee sprain Acute, or Chronic, or Acute on Chronic? @ -Acute Uncomplicated (without systemic symptoms) or Complicated (systemic symptoms)? @ -Uncomplicated Side effects of treatment? @ -No Exacerbation, Progression, or Severe Exacerbation? @ -No Poses a threat to life or bodily function? How? (Chest pain, [place], [place], pneumonia, PE, COPD, DKA, ARF, appy, cholecystitis, CVA, Diverticulitis, Homicidal, Suicidal, threat to staff... and all critical care pts) @ -No Disposition Clinical Impression: Right knee sprain Disposition: HOME SELF-CARE Condition: Stable Instructions (If sedation given, give patient instructions): Knee Sprain (ED) Additional Instructions: Follow-up with orthopedics next week. Remain non weightbearing on right leg. Use crutches and knee immobilizer at all times until orthopedic follow-up. Use ice on the right knee and take [place] and/or Tylenol/ibuprofen as needed for pain. Please return to the Emergency Department if symptoms worsen or any other concerns. Prescriptions: HYDROcodone/APAP 5-325MG [[place] 5] 1 each PO Q6HR PRN #12 tab PRN Reason: Pain Is patient prescribed a controlled substance at d/c from ED?: Yes When asked, does pt state using other controlled substances?: No If prescribed controlled substance>3 days was MAPS reviewed?: Prescribed <3 Days If opioid is for acute pain is fill amount 7 days or less?: Yes Referrals: Mark Cruz MD [Primary Care Provider] - 1-2 days Evangelista Lopez DO [Doctor of Osteopathic Medicine] - 1-2 days Time of Disposition: 23:24
[2025-01-01] MEDS: KETOROLAC 15 MG/ML 1 ML VIAL IM STA (22:44)
[2025-01-01] MEDS: HYDROcodone/APAP 5-325MG 1 EACH TAB PO STA (23:25)
[2025-01-01 23:40] VITALS: BP 158/99; PULSE 69
--- NOTE | 2025-01-02 00:26 | XR ---
EXAM: XR Right Knee, 3 Views CLINICAL HISTORY: ITS.REASON XR Reason: right knee injury TECHNIQUE: Three views of the right knee. COMPARISON: No relevant prior studies available. FINDINGS: Bones/joints: Unremarkable. No acute fracture. No dislocation. Soft tissues: Unremarkable. IMPRESSION: No acute fracture.
== END 2025-01-01 23:42 | disposition home or self-care (01) ==
LOC: EC 22:13
DX: S83.91XA Sprain of unspecified site of right knee, initial encounter (principal); Z87.891 Personal history of nicotine dependence; W10.9XXA Fall (on) (from) unspecified stairs and steps, initial encounter; Y93.01 Activity, walking, marching and hiking
CPT/HCPCS: 73562; 99283; J1885

== ENCOUNTER 2025-01-26 10:40 | Day surgery (SDC) | payer OTHER ==
--- NOTE | 2025-01-25 08:05 | P.HPOR ---
History of Present Illness H&P Date: 01/25/25 Chief Complaint: Right knee pain The patient is a 59-year-old male who presents with right knee pain after an injury he sustained January 02, 2025 slipping down several stairs. He notes anterior and medial pain with activity. He has clicking and popping. He denies previous problems. He notes this does limit his normal function and activities. Review of Systems Per HPI Past Medical History Past Medical History: Osteoarthritis (OA), Prostate Disorder, Sleep Apnea/CPAP/BIPAP Additional Past Medical History / Comment(s): uses cpap., hx Kidney stones., hx colon polyps., chronic back pain, BPH. rt knee pain History of Any Multi-Drug Resistant Organisms: None Reported Past Surgical History: Appendectomy, Orthopedic Surgery Additional Past Surgical History / Comment(s): Lithotripsy, LEFT URETERAL STENT , KIDNEY STONE. Colonoscopy, left great toe surgery Past Anesthesia/Blood Transfusion Reactions: No Reported Reaction Smoking Status: Former smoker - Past Family History Mother Family Medical History: No Reported History Medications and Allergies Home Medications Medication Instructions Recorded Confirmed Type Cholecalciferol (Vitamin D3) 125 mcg PO DAILY 12/21/22 01/21/25 History [Vitamin D3 (125 MCG = 5,000 IU)] Ibuprofen [Motrin Ib] 600 mg PO DIRECTED PRN 01/21/25 01/21/25 History Allergies Allergy/AdvReac Type Severity Reaction Status Date / Time No Known Allergies Allergy Verified 01/21/25 11:27 Physical Examination - Knee right Appearance: effusion Effusion grade: grade 1 Tenderness with palpation: anterior, medial Pain: throughout ROM ROM: extension: -10 degrees ROM: flexion: 110 degrees Crepitus with motion: Yes Strength: extension: 5/5 Strength: flexion: 5/5 Meniscal tests: medial meniscal tests: positive, medial joint line pain: positive Results The patient is a well-developed well-nourished male approximately 5 foot 11, 330 pounds of endomorphic habitus. HEENT exam is nonfocal, neck is supple. He has painless passive motion of the right hip. Straight leg raise is negative. He is tender about the medial joint line of the right knee. Collaterals are stable, Jayme's negative, Nancy's elicits medial pain. He does have an antalgic gait pattern. His distal neurovascular exam appears intact in the right lower extremity. - Diagnostic results Knee MRI: image reviewed (MRI of the right knee shows evidence of a posterior medial meniscal tear extending into the body.) Assessment and Plan Assessment: Symptomatic right knee medial meniscal tear Plan: I talked to the patient at length regarding his condition along with treatment options. At this point is quite symptomatic having pain and mechanical symptoms after this acute injury that limit him. After thorough discussion he opts to proceed with surgery. We will plan to proceed with arthroscopy of the right knee with probable partial medial meniscectomy. Risks and benefits were discussed at length in layman's terms. We will likely perform that as an outpatient procedure.
[2025-01-26] MEDS: ONDANSETRON 4 MG/2 ML VIAL IVP ONE (11:49)
[2025-01-26] MEDS: DEXAMETHASONE SOD PHOSPHATE 4 MG/ML 1 ML VIAL IV ONE (11:50)
[2025-01-26] MEDS: LACTATED RINGERS 1,000 ML IV SCH (11:50)
[2025-01-26] MEDS: IV FLUID CONTINUATION 1,000 ML IV ONE (11:51)
[2025-01-26] MEDS ORDERED: MIDAZOLAM 2 MG/2 ML VIAL ONE (12:28)
[2025-01-26] MEDS ORDERED: fentaNYL (PF) 50 MCG/ML 2 ML AMP ONE (12:28)
[2025-01-26] MEDS ORDERED: SUCCINYLCHOLINE CHLORIDE 200 MG/10 ML VIAL IV ONE (12:28)
[2025-01-26] MEDS ORDERED: PROPOFOL 10 MG/ML 20 ML VIAL IV ONE (12:28)
[2025-01-26] MEDS ORDERED: HYDROmorphone (PF) 1 MG/ML ONE (12:28)
[2025-01-26] MEDS ORDERED: KETOROLAC 15 MG/ML 1 ML VIAL ONE (12:28)
[2025-01-26] MEDS: ceFAZolin 3 GM in SODIUM CHLORIDE 0.9% 100 ML IVPB PRN (12:30)
--- NOTE | 2025-01-26 13:25 | P.OP ---
Date of Procedure: 01/26/25 Preoperative Diagnosis: Right knee internal derangement Postoperative Diagnosis: Right knee posterior medial meniscal tear Procedure(s) Performed: Right knee arthroscopic partial medial meniscectomy [facility] Surgeon: Alex Valadez Estimated Blood Loss (ml): 10 Pathology: none sent Condition: stable Disposition: PACU Indications for Procedure: The patient is a 59-year-old gentleman who presents with progressive right knee pain and mechanical symptoms despite conservative measures. A discussion of the risks and benefits of operative intervention versus continued conservative measures was made with the patient. He opted to proceed with surgery. Operative risks include infection, neurovascular injury, development of blood clots, possible incomplete resolution of symptoms, possible worsening of symptoms and need for subsequent procedures was discussed. Informed consent was obtained. Operative Findings: As below Description of Procedure: The patient was brought to the operating room, and after induction of general anesthesia examined the right knee. Collaterals were stable, Jayme was negative, and posterior drawer was negative. The right lower extremity was prepped and draped in a normal fashion. A superior lateral portal was made through a 3 mm skin incision superior and lateral to the patella. This was used for outflow. A lateral portal was made through a 5 mm vertical skin incision lateral to the patella tendon above the joint line. Diagnostic arthroscopy was performed. On inspection of the medial compartment, a complex tear involving the posterior horn of the medial meniscus in the white-red junction was noted. This was debrided back to stable base with straight baskets and a motorized shaver. The remaining medial meniscus was stable and intact. Grade 2/3 chondral changes were noted along the posterior lateral aspect of the medial femoral condyle. On inspection of the notch, the anterior cruciate ligament appeared to be intact. On inspection of the lateral compartment, no significant cartilage or meniscal pathology was noted. On inspection of the patellofemoral articulation, there was chondromalacia of the femoral trochlea however no loose chondral fragments. The gutters were clear debris. The knee was then thoroughly irrigated. The portals were closed with Steri-Strips. A sterile dressing was applied in addition to a compression stocking. The patient was awoken from general anesthesia and transferred to recovery room in good condition. Blood loss was estimated at 10 mL. No complications were incurred.
[2025-01-26 13:37] VITALS: TEMP 97.2
[2025-01-26] MEDS: HYDROmorphone 0.5 MG/0.5 ML SYRINGE IVP PRN (13:43)
[2025-01-26 14:20] VITALS: RESP 16
[2025-01-26 15:00] VITALS: BP 120/79; PULSE 62
== END 2025-01-26 15:28 | disposition home or self-care (01) ==
LOC: OR 10:40
PROVIDERS: ATTEND Orthopaedic Surgery
DX: S83.241A Other tear of medial meniscus, current injury, right knee, initial encounter (principal); M19.90 Unspecified osteoarthritis, unspecified site; G47.33 Obstructive sleep apnea (adult) (pediatric); E66.01 Morbid (severe) obesity due to excess calories; N40.0 Benign prostatic hyperplasia without lower urinary tract symptoms; N20.0 Calculus of kidney; Z68.42 Body mass index [BMI] 45.0-49.9, adult; Z99.89 Dependence on other enabling machines and devices; Z90.49 Acquired absence of other specified parts of digestive tract; Z87.891 Personal history of nicotine dependence; Z86.0100 Personal history of colon polyps, unspecified; Z79.1 Long term (current) use of non-steroidal anti-inflammatories (NSAID); Z79.899 Other long term (current) drug therapy; X58.XXXA Exposure to other specified factors, initial encounter
CPT/HCPCS: 29881; J1100; J0690; J2405; J1171